=== PATIENT | male | born 1955 | race Caucasian/White ===

== ENCOUNTER → 2017-06-09 13:23 | Outpatient (CLI) | payer MEDICARE ==
[2015-11-17 23:56] VITALS: BMI 45.4
[~2017-06-09 13:23] MED LIST: BAYER CHEWABLE81 MG PO; BETAPACE 80 MG80 MG PO; CENTRUM COMPLE1 EACH PO; CORDARONE200 MG PO; COUMADIN5 MG PO; DICLOFENAC SODI50 MG PO; DOXYCYCLINE HY100 M2 PO; FERROUS SULFAT325 MG PO; FLOMAX0.4 MG PO; GLUCOPHAGE500 MG PO; HYDROCODONE-APA1 TAB PO; K-TAB10 MEQ PO; LASIX20 MG PO; LISINOPRIL10 MG PO; NITROQUICK0.4 MG SL; NORVASC5 MG PO; OXYCODONE HCL5 MG GT; PLAVIX75 MG PO; PRAVACHOL20 MG; PRILOSEC20 MG PO; TESSALON PERLE100 MG PO; VITAMIN C1000 MG PO; ZANAFLEX2 M1 PO; ZANAFLEX4 MG PO; ZANAFLEX6 MG PO; ZANTAC150 MG PO
== END | disposition home or self-care (01) ==
LOC: D.MRI 13:23
DX: M54.16 Radiculopathy, lumbar region (principal)

== ENCOUNTER 2017-07-10 20:39 | Emergency (ER) | payer MEDICARE ==
[2015-11-17 23:56] VITALS: BMI 45.4
== END 2017-07-11 00:16 | disposition home or self-care (01) ==
LOC: D.ER 20:39
DX: S42.001A Fracture of unspecified part of right clavicle, initial encounter for closed fracture (principal); W19.XXXA Unspecified fall, initial encounter; Y93.89 Activity, other specified; Y92.89 Other specified places as the place of occurrence of the external cause; I25.10 Atherosclerotic heart disease of native coronary artery without angina pectoris; I10 Essential (primary) hypertension; E11.9 Type 2 diabetes mellitus without complications

== ENCOUNTER 2017-08-12 16:26 | Inpatient (IN) | payer MEDICARE ==
[~2017-08-12] VITALS: Ht 172.7 cm; Wt 132.5 kg
--- NOTE | ~2017-08-12 | HEMODYNAMI ---
PATIENT:VERNON PETTY MEDICAL RECORD: [id number] : 51 [facility] [id number] ADMISSION DATE: 08/12/17 Generatedon:08/13/201713:38 Patient name: VERNON PETTY Patient #: [id number] SSN: : 1955 Date of study: 08/13/2017 Page: Of Hemodynamic Procedure Report Patient Data Patient Demographics Procedure consent was obtained First Name: VERNON Gender: Male Last Name: JOVANNY : 1955 [facility] Initial: G Age: 62 year(s) Patient #: [id number] Race: Unknown Additional ID: [id number] Contact details [address]: [address] [place] [address] State: [place] City: [place] Zip code: [address] Past Medical History Allergies: No known allergies Admission Admission Data Admission Date: 08/12/2017 Admission Time: 19:05 Room #: 2115 Procedure Procedure Types Cath Procedure Diagnostic Procedure LHC C w/Coronaries FFR/IVUS Intra-Coronary IVUS Initial PCI Procedure Coronary Stent Initial Miscellaneous Procedures Moderate Sedation up to 30 minutes Procedure Description Procedure Date Procedure Date: 08/13/2017 Procedure Start Time: 13:19 Procedure End Time: 13:38 Procedure Staff Name Function Corwin Candelaria MD Performing Physician Leyla Sesay RT Scrub Clemente Tripp RT Scrub Fabian Larson RN Nurse Yamini Ceja RT Monitor Procedure Data Cath Procedure Fluoroscopy Diagnostic fluoroscopy Total fluoroscopy Time: 3 time: 3 min min Diagnostic fluoroscopy Total fluoroscopy dose: dose: 1478 mGy 1478 mGy Contrast Material Contrast Material Type Amount (ml) Isovue 300 89 Entry Location Entry Primary Successful Side Size Upsize Upsize Entry Closure Succes sful Closure Location (Fr) 1 (Fr) 2 (Fr) Remarks Device Remarks Femoral Right 5 Fr 6 Fr Exoseal artery Short Estimated blood loss: 10 ml Diagnostic catheters Device Type Used For End Catheter Placement Cordis 5Fr Pigtail LV Angiography Catheter (MP) Cordis 5Fr JL 4.0 Left Coronary Catheter (MP) Angiography Cordis 5Fr 3DRC Catheter Right Coronary (MP) Angiography Procedure Complications No complications Procedure Medications Medication Administration Route Dosage Oxygen NC 2 l/min Heparin Flush Bag added to field 2 bags (1000units/500ml NS) 0.9% NaCl I.V. 100 ml/hr Plavix P.O. 600 mg Fentanyl I.V. 50 mcg Versed I.V. 1 mg Fentanyl I.V. 50 mcg Versed I.V. 1 mg Integrilin (Bolus I.V. 11.3 ml 2mg/ml) Integrilin (Bolus wasted 8.7 ml 2mg/ml) Heparin Bolus I.V. 4000 units Hemodynamics Rest Heart Rate: 57 (bpm) Snapshots Pre Cath Intra NCS Post Cath Vital Signs Time Heart Resp SPO2 etCO2 LE5msap NIBP (mmHg) Rhythm Pain Sedation Rate (ipm) (%) (mmHg) (mmHg) Status Level (bpm) 13:12:46 56 18 98 0 0 127/74(93) NSR 0 (11) 10(A) , No pain 13:17:31 56 19 97 0 0 137/77(98) NSR 0 (11) 9(A) , No pain 13:22:12 53 18 96 0 0 114/68(86) NSR 0 (11) 9(A) , No pain 13:26:55 52 18 94 0 0 134/71(96) NSR 0 (11) 9(A) , No pain 13:31:39 50 17 95 0 0 124/63(93) NSR 0 (11) 9(A) , No pain 13:36:24 51 15 91 0 0 128/77(108) NSR 0 (11) 9(A) , No pain Medications Time Medication Route Dose Verified Delivered Reason Notes Effectiveness by by 13:12:11 Oxygen NC 2 Fabian Peralta Per physician l/min Neo Larson RN RN 13:12:20 Heparin Flush added 2 Fabian Peralta used for Bag to bags Neo Larson bath steward/stewardess (1000units/500ml field RN NS) 13:12:29 0.9% NaCl I.V. 100 Fabian Peralta Per physician ml/hr Neo Larson RN RN 13:12:40 Plavix P.O. 600 Fabian Peralta for mg Larson Larson RN antiplatelet RN therapy 13:16:36 Fentanyl I.V. 50 Fabian Fabian for sedation mcg Neo Larson RN RN 13:16:43 Versed I.V. 1 mg Fabian Fabian for sedation Neo Larson RN RN 13:22:39 Fentanyl I.V. 50 Fabian Fabian for sedation mcg Neo Larson RN RN 13:22:44 Versed I.V. 1 mg Fabian Fabian for sedation Neo Larson RN RN 13:30:45 Heparin Bolus I.V. 4000 Fabian Fabian for units Neo Larson RN anticoagulation RN 13:31:40 Integrilin I.V. 11.3 Fabian Fabian for (Bolus 2mg/ml) ml Neo Larson RN antiplatelet RN therapy 13:31:52 Integrilin wasted 8.7 Fabian Fabian for (Bolus 2mg/ml) ml Neo Larson RN antiplatelet RN therapy Procedure Log Time Note 12:50:02 Clemente Tripp RT(R) sent for patient. Start room use. 13:03:11 Time tracking: Regular hours 13:03:16 Plan of Care:Hemodynamics will remain stable., Cardiac rhythm will remain stable., Comfort level will be maintained., Respiratory function will remain adequate., Patient/ family verbilizes understanding of procedure., Procedure tolerated without complication., Recovers from procedure without complications.. 13:10:56 Patient received from PCU to CCL 1 Alert and oriented. Tansferred to table in Supine position. 13:10:57 Warm blankets applied, and ro hugger turned on for patient comfort. 13:10:57 Correct patient and procedure confirmed by team. 13:10:58 Signed procedure consent form obtained from patient. 13:10:59 ECG and BP/O2 sat monitors applied to patient. 13:11:00 Vital chart was started 13:11:03 Rhythm: sinus rhythm 13:11:05 Full Disclosure recording started 13:11:18 H&P Date Dictated: 08/13/2017 Within 30 days and on chart.. 13:11:19 Pre-procedure instructions explained to patient. 13:11:20 Pre-op teaching completed and patient verbalized understanding. 13:11:21 Family in waiting room. 13:11:23 Patient NPO since Midnight. 13:11:30 Patient allergic to No known allergies 13:11:33 Is the patient allergic to Iodine/contrast media? No. 13:11:35 Is patient on blood thinner?No 13:11:41 Patient diabetic? No. 13:11:44 Previous problem with sedation/anesthesia? No ? 13:11:45 Snore? Yes 13:11:46 Sleep apnea? Yes 13:11:47 Deviated septum? No 13:11:47 Opens mouth fully? Yes 13:11:48 Sticks out tongue? Yes 13:11:50 Airway obstruction? No ? 13:11:51 Dentures? No ? 13:11:54 Pre procedure: right dorsailis pedis pulse 2+ Normal; easily identifiable; not easily obliterated 13:11:56 Patient pain scale 0/10 ?. 13:12:05 IV patent on arrival in left forearm with 0.9% NaCl at [facility]. 13:12:10 Lab results completed and on chart. 13:12:11 Oxygen 2 l/min NC was administered by Fabian Larson RN; Per physician; 13:12:14 Right groin area was prepped with chlora-prep and draped in sterile fashion 13:12:14 Alarms reviewed by R. N. 13:12:15 Sharps counted by scrub and verified by R.N. 13:12:18 Use device set Femoral Dx 13:12:19 Acist Syringe opened to sterile field. 13:12:20 Heparin Flush Bag (1000units/500ml NS) 2 bags added to field was administered by Fabian Larson RN; used for procedure; 13:12:26 Bag Decanter opened to sterile field. 13:12:26 Medline Cath Pack opened to sterile field. 13:12:27 Terumo 5Fr Goodyears Bar Sheath opened to sterile field. 13:12:27 St Robbie 260cm J .035 wire opened to sterile field. 13:12:28 Acist Hand Control opened to sterile field. 13:12:29 0.9% NaCl 100 ml/hr I.V. was administered by Fabian Larson RN; Per physician; 13:12:29 Acist Manifold opened to sterile field. 13:12:29 Diagnostic Infinity 5Fr Multipack catheter opened to sterile field. 13:12:30 Tegaderm 4 x 4 opened to sterile field. 13:12:40 Plavix 600 mg P.O. was administered by Fabian Larson RN; for antiplatelet therapy; 13:14:33 Final Timeout: patient, procedure, and site verified with staff and physician. All members of the team are in agreement. 13:14:38 Right groin site verified by team. 13:14:40 Physical assessment completed. ASA score P 2 - A patient with mild systemic disease as per Corwin Candelaria MD. 13:14:43 Sedation plan: IV Moderate Sedation Versed, Fentanyl 13:16:26 Baseline sample Acquired. 13:16:28 Zero performed for pressure channel P1 13:16:36 Fentanyl 50 mcg I.V. was administered by Fabian Larson RN; for sedation; ::43 Versed 1 mg I.V. was administered by Fabian Larson RN; for sedation; 13:19:35 Procedure started. 13:19:38 Local anesthetic to right femoral artery with Lidocaine 2% by Corwin Candelaria MD.INITIAL ACCESS ONLY 13:20:08 A 5 Fr sheath was inserted into the Right Femoral artery 13:20:28 A Cordis 5Fr Pigtail Catheter (MP) was advanced over the wire and used for LV Angiography. 13:21:00 LV gram done using RODRIGUEZ 13:21:05 Injector settings: Ml/sec: 10, Volume: 20, 13:21:17 EF : 50 % 13:21:21 Catheter removed. 13:21:39 A Cordis 5Fr JL 4.0 Catheter (MP) was advanced over the wire and used for Left Coronary Angiography. 13:22:39 Fentanyl 50 mcg I.V. was administered by Fabian Larson RN; for sedation; 13:22:44 Versed 1 mg I.V. was administered by Fabian Larson RN; for sedation; 13:23:07 Catheter removed. 13:24:00 A Cordis 5Fr 3DRC Catheter (MP) was advanced over the wire and used for Right Coronary Angiography. 13:24:35 Catheter removed. 13:24:42 Sheath upsized to a 6 Fr Short. 13:25:52 Cana [place] IVUS Catheter opened to sterile field. 13:25:53 Cordis 6FR XBLAD 3.5 guide catheter opened to sterile field. 13:25:53 Terumo 6Fr Goodyears Bar Sheath opened to sterile field. 13:25:54 García Whisper J 300cm 0.014 guide wire opened to sterile field. 13:25:54 Merit BasixCompak Inflation Kit opened to sterile field. 13:26:05 6 Fr XBLAD 3.5 guide catheter was inserted over the wire 13:26:25 Whisper wire advanced. 13:26:49 IVUS catheter advanced over wire. 13:26:53 IVUS pass to LAD lesion performed. 13:28:49 IVUS catheter removed over wire. 13:30:45 Heparin Bolus 4000 units I.V. was administered by Fabian Larson RN; for anticoagulation; 13:31:35 Inflation Number: 1 A Sequans Communicationstronic Integrity 2.5 X 12 stent was prepped and advanced across the Mid LAD. The stent was deployed at 13 MAGDALENA for 0:04 (min:sec). 13:31:40 Integrilin (Bolus 2mg/ml) 11.3 ml I.V. was administered by Fabian Larson RN; for antiplatelet therapy; 13:31:46 Stent catheter was removed intact over wire. 13:31:46 Wire removed. 13:31:47 Guide catheter removed. 13:31:52 Integrilin (Bolus 2mg/ml) 8.7 ml wasted was administered by Fabian Larson RN; for antiplatelet therapy; 13:31:57 Sheath removed intact; hemostasis achieved with Exoseal to the Right Femoral artery. 13:32:03 Procedure ended.(Physican Out) 13:34:34 Fluoroscopy time 03.00 minutes. 13:34:38 Flurop Dose total: 1478 13:34:38 Fluoroscopy dose: 1478 mGy 13:34:48 Contrast amount:Isovue 300 89ml. 13:34:51 Sharps counted by scrub and verified by R.N. 13:34:52 Insertion/operative site no bleeding no hematoma. 13:34:55 Post-op/insertion site Right Femoral artery dressed using a 4 x 4 and Tegaderm. 13:34:58 Post right femoral artery:stable, clean and dry 13:35:01 Post Procedure Pulses reassessed and unchanged 13:35:04 Post-procedure physical assessment completed. ASA score P 2 - A patient with mild systemic disease as per Corwin Candelaria MD. 13:35:06 Post procedure rhythm: unchanged. 13:35:08 Estimated blood loss: 10 ml 13:35:10 Post procedure instruction explained to patient.Patient verbalizes understanding. 13:35:10 Patient needs reinforcement of post procedure teaching. 13:35:20 Procedure Complication : No complications 13:35:23 See physician's report for complete and final results. 13:35:54 Cordis 6Fr Exoseal opened to sterile field. 13:38:12 Procedure type changed to Cath procedure, Diagnostic procedure, LHC, LHC w/Coronaries, FFR/IVUS, Intra-Coronary IVUS Initial, PCI procedure, Coronary Stent Initial, Miscellaneous Procedures, Moderate Sedation up to 30 minutes 13:38:15 Procedure and supply charges have been captured, reviewed, submitted and are correct. 13:38:15 Vital chart was stopped 13:38:18 Report given to PCU. 13:38:22 Patient transfered to PCU with Bed. 13:38:31 Procedure ended. 13:38:31 Full Disclosure recording stopped 13:38:37 End room use (Document Last) Intervention Summary Intervention Notes Time ActionType Lesion and Equipment Action# Pressure Duration Attributes Used 13:31:35 Place stent Mid LAD Medtronic 1 13 00:04 Integrity 2.5 X 12 stent Device Usage Item Name Manufacture Quantity Catalog Hospital Part Current Minimal L ot# / Number Charge Number Stock Stock Serial# Code Acist Acist 1 00125 [id number] 034386 320351 20 Syringe Medical Systems Inc Bag Microtek 1 2002S 003979 26877 958112 5 DecSaavn Medical Inc. Medline Cardinal 1 [id number] 299152 65405 150037 5 Cath Pack Health Terumo 5Fr Terumo 1 PIR288 123673 013323 945809 [address] St Robbie 1 229293 732676 544479 666979 30 260cm J .035 wire Acist Hand Acist 1 45163 702170 088892 857275 5 Control Medical Systems Inc Acist Acist 1 84472 975569 421416 559757 5 Manifold Medical Systems Inc Diagnostic Cardinal 1 [id number] 792170 76709 785795 30 Infinity Health 5Fr Multipack catheter Tegaderm 4 3M 1 1626W 403534 798813 888069 5 x 4 Cordis 5Fr Cardinal 1 139303 5 Pigtail Health Catheter (MP) Cordis 5Fr Cardinal 1 879108 5 JL 4.0 Health Catheter (MP) Cordis 5Fr Cardinal 1 876569 5 3DRC Health Catheter (MP) [place] 1 72944Y 313876 536653 094960 8 [place] IVUS Catheter Cordis 6FR Cardinal 1 [id number] 288062 501312 893951 10 XBLAD 3.5 Health guide catheter Terumo 6Fr Terumo 1 [id number] 684930 670392 679786 40 Goodyears Bar Sheath García García 1 [id number] 462868 976687 432489 5 [facility] J Vascular 300cm 0.014 guide wire Merit Merit 1 NM8227 184353 830644 212777 15 [employer] Medical Inflation Kit Medtronic Medtronic 1 [id number] 606490 147173 3 0 [id number] Integrity 2.5 X 12 stent Cordis 6Fr Cardinal 1 EX600 800888 421182 387579 10 [facility] Signature Audit [place] Stage Time Signature Unsigned Intra-Procedure 08/13/2017 Yamini 1:38:49 PM Counts RT(R) Signatures Monitor : Yamini Signature : Counts RT Date : Time : [place] [id number] [place] [address]
[~2017-08-12 16:26] MED LIST changes: -PRAVACHOL20 MG; +PRAVACHOL20 MG PO
[2017-08-12 17:09] LABS: BASOPHILS 0.3 % (0-2); EOSINOPHILS 4.4 % (0-7); HEMATOCRIT 39.9 % (42.0-54.0); HEMOGLOBIN 13.4 g/dL (13.5-17.5); LYMPHOCYTES 27.9 % (15-50); MCH 30.6 pg (26.0-34.0); MCHC 33.6 g/dL (31.0-37.0); MCV 91.1 fL (80.0-100.0); MEAN PLATELET VOLUME 10.3 fL (7.4-10.4); MONOCYTES 9.6 % (2-11); NEUTROPHILS 57.8 % (40-80); PLATELET COUNT 186 10x3/uL (130-400); RBC 4.38 10x6/uL (4.20-6.10); RDW 14.6 % (11.5-14.5); WBC 8.7 10x3/uL (4.8-10.8)
[2017-08-12 17:26] LABS: ALBUMIN 3.1 g/dL (3.4-5.0); ALKALINE PHOSPHATASE 82 U/L (46-116); ALT (SGPT) 18 U/L (10-68); CALC OSMOLALITY 287 mosm/kg (275-300); CALCIUM 8.6 mg/dL (8.5-10.1); CARBON DIOXIDE 26.1 mmol/L (21.0-32.0); CHLORIDE - SERUM 109 mmol/L (98-107); GLUCOSE 130 mg/dL (74-106); POTASSIUM - SERUM 4.4 mmol/L (3.5-5.1); PROTEIN - SERUM 6.3 g/dL (6.4-8.2); SODIUM 141 mmol/L (136-145); UREA NITROGEN 27 mg/dL (7-18); eGFR NON AFRICAN AMERICAN 80 mL/min (90-120)
[2017-08-12 17:38] LABS: CKMB 1.3 U/L (0.0-3.6); CREATINE KINASE 66 UL (21-232); MAGNESIUM - SERUM 1.7 mg/dL (1.8-2.4); TROPONIN-I < 0.017 ng/mL (0.000-0.060)
--- NOTE | 2017-08-12 20:07 | NUR ---
REPORT RECEIVED FROM LINA BEARDEN.
--- NOTE | 2017-08-12 20:31 | NUR ---
ARRIVED TO FLOOR VIA WHEELCHAIR, ACCOMPANIED BY HOSPITAL STAFF. LEFT FOREARM INFUSING CARDIZEM @ 15. ORIEINTED TO UNIT AND PLACED ON TELEMETRY. CALL LIGHT IN REACH. WILL CONTINUE TO MONITOR. SEE NURSE ASSEMENT.
--- NOTE | 2017-08-12 21:24 | NUR ---
133 FLUTTER ON ARRIVED TO FLOOR, JUST NOW CONVERTED TO 64 SR ON TELEMETRY. WILL CONTINUE TO MONITOR.
[2017-08-12 22:54] VITALS: BP 109/63; BMI 44.5
[2017-08-12 23:58] LABS: CREATINE KINASE 70 UL (21-232)
[2017-08-12 23:59] LABS: TROPONIN-I < 0.017 ng/mL (0.000-0.060)
[2017-08-13] VITALS: BP 119/56
--- NOTE | 2017-08-13 00:19 | NUR ---
CORD MAKER AT BEDSIDE TO OBTAIN VITALS, CALL LIGHT IN REACH. WILL CONTINUE TO MONITOR.
[2017-08-13 04:00] VITALS: BP 120/58
--- NOTE | 2017-08-13 04:52 | NUR ---
NO CHANGES FROM PREVIOUS ASSESSMENT, CALL LIGHT IN REACH. WILL CONTINUE TO MONITOR.
[2017-08-13 06:55] LABS: CKMB 1.2 U/L (0.0-3.6); CREATINE KINASE 67 UL (21-232)
[2017-08-13 07:00] LABS: TROPONIN-I < 0.017 ng/mL (0.000-0.060)
--- NOTE | 2017-08-13 07:30 | NUR ---
RECEIVED PT IN BED EYES CLOSED RESP UNLABORED IV OF CARDIZEN INFUSING TO LFA @5CC/HR WITHOUT DIFFICULTY SITE FREE OF REDNESS OR EDEMA
[2017-08-13 07:47] VITALS: BP 128/80
[2017-08-13 08:55] LABS: BASOPHILS 0.4 % (0-2); EOSINOPHILS 6.1 % (0-7); HEMATOCRIT 38.6 % (42.0-54.0); HEMOGLOBIN 12.7 g/dL (13.5-17.5); IMMATURE GRANULOCYTES 0.2 % (0-5); LYMPHOCYTES 28.7 % (15-50); MCH 30.4 pg (26.0-34.0); MCHC 32.9 g/dL (31.0-37.0); MCV 92.3 fL (80.0-100.0); MEAN PLATELET VOLUME 11.4 fL (7.4-10.4); MONOCYTES 10.2 % (2-11); NEUTROPHILS 54.4 % (40-80); PLATELET COUNT 203 10x3/uL (130-400); RBC 4.18 10x6/uL (4.20-6.10); RDW 14.9 % (11.5-14.5)
[2017-08-13 08:58] LABS: ANION GAP 11.8 mmol/L (8-16); CALCIUM 8.5 mg/dL (8.5-10.1); CARBON DIOXIDE 25.5 mmol/L (21.0-32.0); CREATININE - SERUM 1.1 mg/dL (0.6-1.3); POTASSIUM - SERUM 4.3 mmol/L (3.5-5.1)
--- NOTE | 2017-08-13 08:58 | NUR ---
BETAPACE 80 MG GIVEN PO PER ORDER AT THIS TIME
[2017-08-13 09:42] VITALS: Ht 172.7 cm; Wt 132.5 kg
--- NOTE | 2017-08-13 11:00 | NUR ---
DCD CARDIZEM IV AT THIS TIME PER ORDER
[2017-08-13 11:42] VITALS: BP 106/52
--- NOTE | 2017-08-13 13:55 | NUR ---
RECEIVED PT BACK FROM DIRECTOR RECREATION VIA BED RT MARSHA GRAHAM C/D/I PPPX4 VSS WILL CONTINUE TO MONITR
[2017-08-13] MEDS ORDERED: BETAPACE 80 MG80 MG PO (15:27)
[2017-08-13] MEDS ORDERED: PLAVIX75 MG PO (16:26)
--- NOTE | 2017-08-13 16:47 | NUR ---
Patient Name: VERNON PETTY Admission Status: ER Accout number: [id number] Admission Date: 08-12-2017 : 1955 Admission Diagnosis: Attending: NAVDEEP PATEL Current LOS: 1 Anticipated DC Date: 08-13-2017 Planned Disposition: Home Primary Insurance: [facility] Discharge Planning Comments: * Is the patient Alert and Oriented? Yes 0 * How many steps to enter\exit or inside your home? 3 0 * PCP DR. PIERCE 0 * Pharmacy [facility] 0 * Preadmission Environment Home with Family 0 * ADLs Independent 0 * Equipment Cane 0 * Other Equipment NO MEDICAL EQUIPMENT PROVIDER PREFERENCE 0 * List name and contact numbers for known caregivers / representatives who currently or will assist patient after discharge: DAXA STEIN, SPOUSE, 0 * Community resources currently utilized None 0 * Please name any agencies selected above. NONE 0 * Additional services required to return to the preadmission environment? No 0 * Can the patient safely return to the preadmission environment? Yes 0 * Has this patient been hospitalized within the prior 30 days at any hospital? No 0 CM MET WITH PT IN ROOM TO DISCUSS DISCHARGE PLANNING AND NEEDS. PT REPORTS LIVING AT HOME INDEPENDENTLY WITH HIS SPOUSE. PT HAS A CANE WITH NO MEDICAL EQUIPMENT PROVIDER PREFERENCE. PT HAS NO OUTSIDE SERVICES ASSISTING IN THE HOME. CM DISCUSSED AVAILABILITY OF HOME HEALTH, REHAB SERVICES AND MEDICAL EQUIPMENT. PT DENIES DISCHARGE NEEDS, REPORTS HIS SPOUSE WILL PICK HIM UP FOR DISCHARGE HOME AT 8PM TONIGHT. State Inspector: Daquan Willis
--- NOTE | 2017-08-13 17:18 | NUR ---
FSBS 107
--- NOTE | 2017-08-13 20:02 | NUR ---
WHEELED OUT TO VEHICLE.
--- NOTE | 2017-08-14 11:12 | EC ---
PATIENT:VERNON PETTY DATE OF SERVICE: 08/12/17 SEX: M MEDICAL RECORD: [id number] DATE OF : [birth year] LOCATION:D.M2 D.211 AGE OF PATIENT: 62 ADMISSION DATE: 08/12/17 REFERRING PHYSICIAN: INTERPRETING PHYSICIAN: GELY CRAMER MD ECHOCARDIOGRAM REPORT ECHO CHARGES 4 ECHO COMPLETE CLINICAL DIAGNOSIS: ATRIAL FLUTTER ECHOCARDIOGRAPHIC MEASUREMENTS (adult normal given) AC root (d.<3.7cm) 3.2 cm LV Septum d (<1.2 cm> 1.4 cm Valve Excursion 1.6 cm LV Septum (systole) 1.7 cm Left Atria (s.<4.0cm> 3.5 cm LVPW d(<1.2cm) 1.6 cm RV (d.<2.3cm) 4.1 cm LVPW (sytole) 1.8 cm LV diastole(<5.6CM) 5.2 cm MV E-F(>70mm/sec) cm LV systole 3.7 cm LVOT Diameter 2.0 cm MV exc.(>10mm) 2.1 cm Est.ejection fraction (50-75%) % Pericardial Effusion N DOPPLER: LVIT cm/sec A 62.0 cm/sec E 92.0 cm/sec LA cm/sec RVSP mmHg LVOT 88 cm/sec AOP1/2T 6.24 m/s Asc. Ao 125 cm/sec RVOT 99 cm/sec RA cm/sec PA 100 cm/sec AV Gradient Peak 3.17 mmHg AV Mean 2.1 mmHg AV Area 4 cm MV Gradient Peak 4.0 mmHg MV Mean 0.79 mmHg MV Area cm COMMENTS: Cat And Dog Bather: Bob DIAZ Manager Inventory: 2 Dr. Avila TAPE# PACS DATE OF SERVICE: 08/13/2017 Echocardiogram FINDINGS: 1. Left ventricular chamber size is within normal limits. Left ventricular systolic function is normal. Overall ejection fraction estimated at 55%. 2. Left atrium is within normal limits at 3.5 cm. Right atrium and right ventricular chamber sizes are mildly dilated. 3. Valvular structures have normal structure and motion. ECHOCARDIOGRAM REPORT [id number] VERNON PETTY 4. Doppler interrogation reveals no significant valvular insufficiency or stenosis. 5. No evidence of pericardial effusion or left ventricular thrombus. TRANSINT:[id number] Voice Confirmation ID: [id number] DOCUMENT ID: [id number] GELY CRAMER MD at 1112 CC: [id number] DICTATION DATE: 08/13/17 1247 TELLER SUPERVISOR: 08/13/17 190 DIS IN 08/13/17 [facility] [address] [place] [address]
--- NOTE | 2017-08-14 11:12 | OP ---
PATIENT NAME: VERNON PETTY MEDICAL RECORD: [id number] :[birth year] LOCATION:D.M2 D.2115 ADMISSION DATE:08/12/17 SURGEON: GELY CRAMER MD DATE OF OPERATION: 08/13/2017 PROCEDURES: 1. PTCA stent LAD. 2. Intravascular ultrasound of the LAD. 3. Left heart catheterization. 4. Selective coronary angiography. 5. Left ventriculogram. INDICATION: Angina and coronary artery disease. PROCEDURE IN DETAIL: After informed consent was obtained and after detailed explanation of risks, benefits as well as alternative therapies, the patient elected to proceed with angiogram and angioplasty. The right femoral area was prepped and draped in normal sterile fashion. The right femoral artery was cannulated via modified Seldinger technique with placement of 6-Polish sheath. All catheters exchanged through this sheath. FINDINGS: Left ventriculogram was performed in standard 30-degree RODRIGUEZ view, reveals preserved cardiac wall motion, ejection fraction 50%. SELECTIVE CORONARY ANGIOGRAPHY: 1. Left main showed no significant angiographic disease. 2. Left anterior descending has previously placed stents, these are widely patent; however, there is 65% to 70% stenosis after the previously placed stents confirmed by intravascular ultrasound. 3. The left circumflex shows moderate irregularities, but no flow-limiting stenosis. 4. Right coronary is small, nondominant, moderate disease. PTCA STENT OF THE LAD: The stent used is a 2.5 x 12 mm Integrity taken to 17 atmospheres. Result was 0% residual stenosis. OVERALL IMPRESSION: Successful percutaneous transluminal coronary angioplasty stent of the left anterior descending going from 65-70% initial stenosis to 0% residual stenosis. TRANSINT:[id number] Voice Confirmation ID: [id number] DOCUMENT ID: [id number] GELY CRAMER MD at 1112 CC: [id number] DICTATION DATE: 08/13/17 1338 DRYWALL TAPER: 08/13/17 2030 DIS IN 08/13/17 [place] [id number]
== END 2017-08-13 20:03 | disposition home or self-care (01) | DRG 249 ==
LOC: D.ER 16:26 → D.M2 19:05
PROVIDERS: Family Medicine; Internal Medicine Interventional Cardiology; ADMIT Family Medicine Adult Medicine
PROC: B2111ZZ Fluoroscopy of Multiple Coronary Arteries using Low Osmolar Contrast (ICD-10-PCS; 2017-08-13)
PROC: B2151ZZ Fluoroscopy of Left Heart using Low Osmolar Contrast (ICD-10-PCS; 2017-08-13)
PROC: B240ZZ3 Ultrasonography of Single Coronary Artery, Intravascular (ICD-10-PCS; 2017-08-13)
PROC: 02703DZ Dilation of Coronary Artery, One Artery with Intraluminal Device, Percutaneous Approach (ICD-10-PCS; principal; 2017-08-13 11:45)
PROC: 4A023N7 Measurement of Cardiac Sampling and Pressure, Left Heart, Percutaneous Approach (ICD-10-PCS; 2017-08-13 11:45)
DX: I25.119 Atherosclerotic heart disease of native coronary artery with unspecified angina pectoris (principal); I48.92 Unspecified atrial flutter; Z68.41 Body mass index [BMI] 40.0-44.9, adult; I10 Essential (primary) hypertension; K21.9 Gastro-esophageal reflux disease without esophagitis; E66.01 Morbid (severe) obesity due to excess calories; D63.8 Anemia in other chronic diseases classified elsewhere; I48.2 Chronic atrial fibrillation; E11.65 Type 2 diabetes mellitus with hyperglycemia; R00.2 Palpitations; R00.0 Tachycardia, unspecified; Z95.5 Presence of coronary angioplasty implant and graft; Z87.891 Personal history of nicotine dependence

== ENCOUNTER 2017-09-01 13:38 | Observation (INO) | payer MEDICARE ==
[2017-09-01 14:06] LABS: BASOPHILS 0.2 % (0-2); EOSINOPHILS 5.3 % (0-7); HEMATOCRIT 42.2 % (42.0-54.0); HEMOGLOBIN 14.3 g/dL (13.5-17.5); IMMATURE GRANULOCYTES 0.2 % (0-5); LYMPHOCYTES 24.8 % (15-50); MCH 30.8 pg (26.0-34.0); MCHC 33.9 g/dL (31.0-37.0); MCV 90.9 fL (80.0-100.0); MEAN PLATELET VOLUME 10.8 fL (7.4-10.4); MONOCYTES 9.6 % (2-11); NEUTROPHILS 59.9 % (40-80); PLATELET COUNT 183 10x3/uL (130-400); RBC 4.64 10x6/uL (4.20-6.10); RDW 14.2 % (11.5-14.5); WBC 9.1 10x3/uL (4.8-10.8)
[2017-09-01 14:26] LABS: ALBUMIN 3.4 g/dL (3.4-5.0); ALKALINE PHOSPHATASE 100 U/L (46-116); ALT (SGPT) 18 U/L (10-68); BILIRUBIN - TOTAL 0.45 mg/dL (0.2-1.3); CALC OSMOLALITY 280 mosm/kg (275-300); CALCIUM 8.9 mg/dL (8.5-10.1); CARBON DIOXIDE 24.7 mmol/L (21.0-32.0); CHLORIDE - SERUM 104 mmol/L (98-107); CREATININE - SERUM 0.9 mg/dL (0.6-1.3); GLUCOSE 125 mg/dL (74-106); POTASSIUM - SERUM 4.3 mmol/L (3.5-5.1); PROTEIN - SERUM 6.8 g/dL (6.4-8.2); SODIUM 139 mmol/L (136-145); UREA NITROGEN 17 mg/dL (7-18); eGFR NON AFRICAN AMERICAN 90 mL/min (90-120)
[2017-09-01 14:49] LABS: AMYLASE - SERUM 32 U/L (25-115); CHOL - HDL RATIO 2.7 ratio (2.3-4.9); CHOLESTEROL, TOTAL 137 mg/dL (0-200); CKMB 1.1 U/L (0.0-3.6); CREATINE KINASE 82 UL (21-232); HDL CHOLESTEROL 51 mg/dL (32-96); LDL CHOLESTEROL 63 mg/dL (0-100); LDL-HDL RATIO 1.2 ratio (1.5-3.5); LIPASE 118 U/L (73-393); TRIGLYCERIDE 117 mg/dL (30-200)
[2017-09-01 14:57] LABS: TROPONIN-I < 0.017 ng/mL (0.000-0.060)
[2017-09-01 17:58] LABS: CKMB 1.4 U/L (0.0-3.6); CREATINE KINASE 86 UL (21-232); TROPONIN-I < 0.017 ng/mL (0.000-0.060)
[2017-09-01] MEDS ORDERED: BETAPACE 80 MG80 MG PO (18:08)
[2017-09-01 18:39] VITALS: BP 146/105; BMI 45.5
[2017-09-01 19:00] VITALS: BP 157/92
--- NOTE | 2017-09-01 19:44 | NUR ---
ASSESSMENT COMPLETE, PT A&O. AMBULATING IN ROOM, GAIT STEADY. VITALS STABLE. IV TO RIGHT AC SL. SITE CLEAN AND DRY. PT C/O HEADACHE, INFORMED PT THAT I DIDNT HAVE ANY ORDERS FOR PAIN MEDICATION BUT I WILL CALL THE PHYSICIAN AND ASK IF FOR SOMETHING. NO OTHER NEEDS AT THIS TIME, WILL CONT TO MONITOR.
[2017-09-01 19:48] VITALS: BP 156/87
--- NOTE | 2017-09-01 20:29 | NUR ---
HS MEDS GIVEN WITH FRESH ICE WATER, FIORICET 1 TAB GIVEN FOR HEADACHE, RATES PAIN AT AN 8 ON PAIN SCALE.
[2017-09-01 23:42] LABS: CKMB 1.2 U/L (0.0-3.6); CREATINE KINASE 92 UL (21-232)
[2017-09-01 23:43] LABS: TROPONIN-I < 0.017 ng/mL (0.000-0.060)
[2017-09-02] VITALS: BP 127/72
--- NOTE | 2017-09-02 00:09 | NUR ---
ANIMAL BEHAVIORIST AT BED SIDE TO OBTAIN VITALS.
[2017-09-02 04:00] VITALS: BP 139/85
--- NOTE | 2017-09-02 05:01 | NUR ---
PT LYING IN BED, RESTING COMFORTABLY, CONTINUE TO MONITOR CLOSELY.
[2017-09-02 05:06] LABS: BASOPHILS 0.2 % (0-2); EOSINOPHILS 5.5 % (0-7); HEMATOCRIT 42.6 % (42.0-54.0); HEMOGLOBIN 14.4 g/dL (13.5-17.5); IMMATURE GRANULOCYTES 0.1 % (0-5); MCH 30.6 pg (26.0-34.0); MCHC 33.8 g/dL (31.0-37.0); MCV 90.6 fL (80.0-100.0); MONOCYTES 9.2 % (2-11); PLATELET COUNT 194 10x3/uL (130-400); RDW 14.2 % (11.5-14.5); WBC 8.9 10x3/uL (4.8-10.8)
[2017-09-02 05:51] LABS: CALC OSMOLALITY 283 mosm/kg (275-300); CALCIUM 8.9 mg/dL (8.5-10.1); CHLORIDE - SERUM 107 mmol/L (98-107); CKMB 0.9 U/L (0.0-3.6); CREATINE KINASE 87 UL (21-232); CREATININE - SERUM 0.9 mg/dL (0.6-1.3); GLUCOSE 119 mg/dL (74-106); POTASSIUM - SERUM 4.3 mmol/L (3.5-5.1); SODIUM 141 mmol/L (136-145); TROPONIN-I < 0.017 ng/mL (0.000-0.060); UREA NITROGEN 19 mg/dL (7-18); eGFR NON AFRICAN AMERICAN 90 mL/min (90-120)
[2017-09-02 08:11] VITALS: BP 131/76
[2017-09-02 10:19] VITALS: BMI 45.4
[2017-09-02 12:10] VITALS: BP 113/72
--- NOTE | 2017-09-02 14:50 | CN ---
PATIENT NAME:VERNON PETTY MEDICAL RECORD: [id number] : [birth year] LOCATION:[facility] D.2119 ADMIT DATE: 09/01/17 ACCOUNT: [id number] CONSULTING PHYSICIAN: WENDY BEARDEN MD REFERRING PHYSICIAN: DANA ARECHIGA MD DATE OF CONSULTATION: 09/02/2017 HISTORY OF PRESENT ILLNESS: A 62-year-old gentleman with known history of coronary artery disease, status post recent intervention to the LAD, has a history of atrial fibrillation. He was admitted with chest pain, dyspnea, found to have AFib with RVR. Cardiac enzymes are currently negative. He recently had his sotalol decreased secondary to the bradyarrhythmias. He has been cardioverted in the past. We are asked to see him concerning his cardiovascular status. PAST MEDICAL HISTORY: Includes: 1. History of coronary artery disease as described above. 2. Hypertension. 3. Hyperlipidemia. 4. Diabetes mellitus. ALLERGIES: None known. MEDICATIONS: Include metformin 1 gram b.i.d., Zantac 150 q. day, aspirin 81 q. day, sotalol 40 b.i.d., pravastatin 20 q.h.s., lisinopril 10 q. day, Plavix 75 q. day. SOCIAL HISTORY: He is a nonsmoker, nondrinker. He takes care of all his ADLs. REVIEW OF SYSTEMS: The patient reports easy bruising but reports no swollen glands. The patient reports no fever, no night sweats, no significant weight gain, no significant weight loss. No significant exercise tolerance. The patient reports no dry eyes, no irritation, no vision change. Patient reports no difficulty hearing and no ear pain. Patient reports no frequent nose bleeds or nose and sinus problems. Patient reports on arm pain on exertion. No shortness of breath while lying down. No history of heart murmur. Patient reports no cough, no wheezing or coughing up blood. Patient reports no abdominal pain, no vomiting. Normal appetite. No diarrhea and not vomiting blood. No nausea and no constipation. Patient reports no incontinence. No difficulty urinating. No hematuria. No increased frequency. Patient reports no muscle aches. No weakness, no arthralgias, no back pain. No swelling of the extremities. Patient reports no abnormal mole, no jaundice, no rashes. Reports no loss of consciousness. No weakness and no numbness. No seizures, dizziness, or headaches. The patient reports no depression, no sleep disturbance, feeling safe in a relationship and no alcohol abuse. Patient reports on fatigue. Reports no runny nose or sinus pressure. No itching, no hives, and no frequent sneezing. PHYSICAL EXAMINATION: GENERAL: Middle-aged gentleman, in no acute distress. HEENT: Normocephalic and atraumatic. NECK: No bruits are noted. HEART: Irregular, rate is 118. LUNGS: Fair air excursion. ABDOMEN: Soft and nontender. CONSULT REPORT [id number] VERNON PETTY EXTREMITIES: Pulse 2+ with no edema. DIAGNOSTIC DATA: ECG concerning for atrial fibrillation with RVR. At this point in time, I will increase sotalol. Given the length of the episode, we will need placed on anticoagulation and start Xarelto for this purpose. May need cardioversion in the future. Given the previous history of bradyarrhythmias and question of 3 sick sinus syndrome, may require pacer at some point. TRANSINT:[id number] Voice Confirmation ID: [id number] DOCUMENT ID: [id number] WENDY BEARDEN MD at 1450 CC: [id number] DICTATION DATE: 09/02/17 0855 ITALIAN TUTOR: 09/02/17 1125 ADM IN [place] [id number] [place] [id number]
[2017-09-02 15:26] VITALS: BP 127/89
--- NOTE | 2017-09-02 15:40 | NUR ---
TELEMETRY SR. CALL LIGHT IN REACH. NO C/O NOTED. WILL CONT. PLAN OF CARE.
--- NOTE | 2017-09-02 17:02 | NUR ---
Patient Name: VERNON PETTY Admission Status: ER Accout number: [id number] Admission Date: 09-01-2017 : 1955 Admission Diagnosis: Attending: DANA ARECHIGA Current LOS: 1 Anticipated DC Date: 09-03-2017 Planned Disposition: Home Primary Insurance: [facility] Discharge Planning Comments: * Is the patient Alert and Oriented? Yes 0 * How many steps to enter\exit or inside your home? 3 0 * PCP DR. PIERCE 0 * Pharmacy [facility] 0 * Preadmission Environment Home with Family 0 * ADLs Independent 0 * Equipment Cane CPAP 0 * Other Equipment NO MEDICAL EQUIPMENT PROVIDER PREFERNCE 0 * List name and contact numbers for known caregivers / representatives who currently or will assist patient after discharge: DAXA EMIL, SIGNIFICANT OTHER, [place] PETTY, SON, 0 * Community resources currently utilized None 0 * Please name any agencies selected above. NONE 0 * Additional services required to return to the preadmission environment? No 0 * Can the patient safely return to the preadmission environment? Yes 0 * Has this patient been hospitalized within the prior 30 days at any hospital? No 0 CM RECEIVED ORDER FOR ALCOHOL OR DRUG ABUSE TREATMENT SCREENING AND INFORMATION. CM MET WITH PT IN ROOM TO DISCUSS DISCHARGE PLANNING AND NEEDS. PT REPORTS LIVING AT HOME INDEPENDENTLY WITH SIGNIFICANT OTHER AND ADULT SON. PT HAS NO CANE AND CPAP WITH NO MEDICAL EQUIPMENT PROVIDER PREFERENCE. PT HAS NO OUTSIDE SERVICES ASSISTING IN THE HOME. CM DISCUSSED AVAILABILITY OF HOME HEALTH, REHAB SERVICES AND MEDICAL EQUIPMENT. PT DENIES DISCHARGE NEEDS, REPORTS HIS FAMILY WILL PICK HIM UP FOR DISCHARGE HOME. CM ASKED PT ABOUT SUBSTANCE ABUSE ISSUES. PT REPORTS HE DOES USE MARIJUANA, BUT IS NOT INTERESTED IN QUITTING. PT WANTS TO OBTAIN A MEDICAL MARIJUANA CARD AND HAS DISCUSSED THIS WITH THE DOCTOR WHO HAS PROVIDED HIM WITH SOME GUIDANCE. PT DENIES DISCHARGE NEEDS, CM TO FOLLOW AND ASSIST IF NEEDED. Geothermal Operations Manager: Daquan Willis
--- NOTE | 2017-09-02 19:37 | NUR ---
ASSESSMENT COMPLETE, A&O. RESPERATIONS EVEN ON RA. IV TO RIGHT AC SL, SITE CLEAN AND DRY. PT DENIES PAIN OR NEEDS, BED LOW, CL IN REACH.
[2017-09-02 20:00] VITALS: BP 128/103
--- NOTE | 2017-09-02 21:08 | NUR ---
HS MEDS GIVEN WITH FRESH ICE WATER, MORPHINE 4 MG GIVEN FOR C/O PAIN TO CHEST, RATES PAIN AT A 4 ON PAIN SCALE.
--- NOTE | 2017-09-02 23:59 | NUR ---
RESTING WITH EYES CLOSED, RESPERATIONS EVEN, NO S/S DISTRESS NOTED
--- NOTE | 2017-09-03 01:57 | NUR ---
LYING IN BED WITH EYES CLOSED, CALL LIGHT IN REACH. WILL CONTINUE WITH PLAN OF CARE.
[2017-09-03 04:00] VITALS: BP 101/78
[2017-09-03 05:55] LABS: BASOPHILS 0.3 % (0-2); EOSINOPHILS 4.3 % (0-7); HEMATOCRIT 43.5 % (42.0-54.0); HEMOGLOBIN 14.7 g/dL (13.5-17.5); IMMATURE GRANULOCYTES 0.3 % (0-5); LYMPHOCYTES 25.3 % (15-50); MCH 30.5 pg (26.0-34.0); MCHC 33.8 g/dL (31.0-37.0); MCV 90.2 fL (80.0-100.0); MEAN PLATELET VOLUME 11.1 fL (7.4-10.4); MONOCYTES 8.6 % (2-11); NEUTROPHILS 61.2 % (40-80); PLATELET COUNT 211 10x3/uL (130-400); RBC 4.82 10x6/uL (4.20-6.10); RDW 14.2 % (11.5-14.5); WBC 11.1 10x3/uL (4.8-10.8)
[2017-09-03 06:12] LABS: CALC OSMOLALITY 279 mosm/kg (275-300); CALCIUM 8.5 mg/dL (8.5-10.1); CARBON DIOXIDE 24.5 mmol/L (21.0-32.0); CHLORIDE - SERUM 104 mmol/L (98-107); CREATININE - SERUM 0.9 mg/dL (0.6-1.3); GLUCOSE 135 mg/dL (74-106); POTASSIUM - SERUM 3.8 mmol/L (3.5-5.1); SODIUM 138 mmol/L (136-145); UREA NITROGEN 17 mg/dL (7-18); eGFR NON AFRICAN AMERICAN 90 mL/min (90-120)
[2017-09-03 07:42] VITALS: BP 124/89
[2017-09-03] MEDS ORDERED: BETAPACE 120 M120 MG PO (12:14)
[2017-09-03] MEDS ORDERED: XARELTO20 MG PO (12:14)
--- NOTE | 2017-09-03 15:01 | NUR ---
IV AND TELEMETRY DCD. DC PLANS GIVEN. UNDERSTANDING VOICED. ESCORTED TO CAR BY W/C.
== END 2017-09-03 15:02 | disposition home or self-care (01) ==
LOC: D.ER 13:38 → OBSVTIME 16:48 → D.M2 16:48 → D.SDCHOLD 17:12 → D.M2 17:17
PROVIDERS: Family Medicine; ADMIT Family Medicine
DX: I48.91 Unspecified atrial fibrillation (principal); I25.10 Atherosclerotic heart disease of native coronary artery without angina pectoris; Z95.5 Presence of coronary angioplasty implant and graft; I10 Essential (primary) hypertension; E78.5 Hyperlipidemia, unspecified; E66.01 Morbid (severe) obesity due to excess calories; Z68.42 Body mass index [BMI] 45.0-49.9, adult; D63.8 Anemia in other chronic diseases classified elsewhere; E11.65 Type 2 diabetes mellitus with hyperglycemia

== ENCOUNTER 2017-10-04 14:24 | Inpatient (IN) | payer MEDICARE ==
[~2017-10-04] VITALS: Ht 172.7 cm; Wt 129.3 kg
--- NOTE | ~2017-10-04 | HEMODYNAMI ---
PATIENT:VERNON PETTY MEDICAL RECORD: [id number] : [birth year] [address] [id number] ADMISSION DATE: 10/04/17 Generatedon:10/05/20179:58 Patient name: VERNON PETTY Patient #: [id number] SSN: : 1955 Date of study: 10/05/2017 Page: Of Hemodynamic Procedure Report Patient Data Patient Demographics Procedure consent was obtained First Name: VERNON Gender: Male Last Name: JOVANNY : 1955 [facility] Initial: Max Age: 62 year(s) Patient #: [id number] Race: Unknown Additional ID: [id number] Contact details Address: [address] [place] [address] State: [place] City: [place] Zip code: [address] Past Medical History Allergies: No known allergies Admission Admission Data Admission Date: 10/04/2017 Admission Time: 18:34 Room #: D.2114 Weight (lbs.): 291.01 Weight (kg.): 132 Lab Results Lab Result Date: 10/05/2017 Lab Result Time: 0:00 Biochemistry Name Units Result Min Max BUN mg/dl 29 --(----)-* 7 18 Creatinine mg/dl 0.9 --(-*--)-- 0.6 1.3 CBC Name Units Result Min Max Hematocrit % 45.8 --(-*--)-- 42 54 Hemoglobin g/dl 15.6 --(--*-)-- 13.5 17.5 Procedure Procedure Types Cath Procedure Diagnostic Procedure LHC LHC w/Coronaries Miscellaneous Procedures Moderate Sedation up to 15 minutes Procedure Description Procedure Date Procedure Date: 10/05/2017 Procedure Start Time: 9:43 Procedure End Time: 9:57 Procedure Staff Name Function Carol Ramos RT Monitor Mario Avila MD Performing Physician Doug Ramirez RN Nurse Leyla Sesay RT Scrub Clemente Tripp RT Monitor Procedure Data Cath Procedure Fluoroscopy Diagnostic fluoroscopy Total fluoroscopy Time: 1.8 time: 1.8 min min Diagnostic fluoroscopy Total fluoroscopy dose: 572 dose: 572 mGy mGy Contrast Material Contrast Material Type Amount (ml) Isovue 300 61 Entry Location Entry Primary Successful Side Size Upsize Upsize Entry Closure Succes sful Closure Location (Fr) 1 (Fr) 2 (Fr) Remarks Device Remarks Femoral Right 5 Fr Exoseal artery Estimated blood loss: 10 ml Diagnostic catheters Device Type Used For End Catheter Placement Cordis 5Fr JL 4.0 Procedure Catheter (MP) Cordis 5Fr 3DRC Catheter Procedure (MP) Cordis 5Fr Pigtail Procedure Catheter (MP) Procedure Complications No complications Procedure Medications Medication Administration Route Dosage 0.9% NaCl I.V. 100 ml/hr Oxygen NC 2 l/min Heparin Flush Bag added to field 2 bags (1000units/500ml NS) Lidocaine 2% added to field 20 Versed I.V. 1 mg Fentanyl I.V. 50 mcg Fentanyl I.V. 50 mcg Versed I.V. 1 mg Hemodynamics Rest HGB: 15.6 (g/dl) Heart Rate: 54 (bpm) Pressure Samples Time Site Value (mmHg) Purpose Heart Use Rate(bpm) 9:48 AO 155/83(111) Snapshot 56 9:52 LV 158/15,28 Snapshot 66 9:53 AO 178/85(124) Pullback 58 Gradients Valve Time Site Site 2 Mean SEP/DFP Peak To Heart Use 1 (mmHg) (sec/min) Peak Rate (mmHg) (bpm) Aortic 9:53 LV AO 9 4 58 178/85(124) Calculations Valve P-P Mean Valve Index Valve Source Name Gradient Area Flow (cm2) Aortic 9 9 Snapshots Pre Cath Intra NCS Post Cath Vital Signs Time Heart Resp SPO2 etCO2 NIBP (mmHg) Rhythm Pain Sedation Rate (ipm) (%) (mmHg) Status Level (bpm) 9:29:09 56 18 100 43.5 146/101(118) NSR 0 (11) 10(A) , No pain 9:33:53 52 22 100 38.3 153/81(111) NSR 0 (11) 10(A) , No pain 9:39:29 60 20 95 33 159/72(95) NSR 0 (11) 10(A) , No pain 9:44:16 54 17 98 42 161/84(118) NSR 0 (11) 10(A) , No pain 9:49:03 58 19 98 38.3 138/85(114) NSR 0 (11) 10(A) , No pain 9:54:28 59 18 98 42.8 155/86(117) NSR 0 (11) 10(A) , No pain Medications Time Medication Route Dose Verified Delivered Reason Notes Effec tiveness by by 9:32:15 0.9% NaCl I.V. 100 Doug Doug Per ml/hr Ashley Ramirez physician RN RN 9:33:54 Oxygen NC 2 Doug Doug Per l/min Ashley Ramirez physician RN RN 9:34:17 Heparin Flush added 2 Doug Doug used for Bag to bags Lorigan Lorigan procedure (1000units/500ml field RN RN NS) 9:34:31 Lidocaine 2% added 20ml Doug Doug for local to vial Lorigan Lorigan anesthetic field RN RN 9:37:55 Versed I.V. 1 mg Doug Doug for Lorigan Lorigan sedation RN RN 9:38:07 Fentanyl I.V. 50 Doug Doug for mcg Lorigan Lorigan sedation RN RN 9:39:39 Fentanyl I.V. 50 Doug Doug for mcg Lorigan Lorigan sedation RN RN 9:46:29 Versed I.V. 1 mg Doug Doug for Lorigan Lorigan sedation RN technician trainee Log Time Note 8:57:19 Doug Ramirez RN sent for patient. Start room use. 8:57:20 Time tracking: Regular hours 8:57:24 Plan of Care:Hemodynamics will remain stable., Cardiac rhythm will remain stable., Comfort level will be maintained., Respiratory function will remain adequate., Patient/ family verbilizes understanding of procedure., Procedure tolerated without complication., Recovers from procedure without complications.. 9:06:39 H&P Date Dictated: 10/04/2017 Within 30 days and on chart.. 9:07:20 Lab Result : Hemoglobin 15.6 g/dl 9:07:20 Lab Result : Hematocrit 45.8 % 9:07:20 Lab Result : BUN 29 mg/dl 9:07:20 Lab Result : Creatinine 0.9 mg/dl 9:07:27 Lab results completed and on chart. 9:15:40 Patient received from Pre/Post Procedure Room to CCL 1 Alert and oriented. Tansferred to table in Supine position. 9:15:41 Warm blankets applied, and ro hugger turned on for patient comfort. 9:15:42 Correct patient and procedure confirmed by team. 9:15:44 Signed procedure consent form obtained from patient. 9:15:45 ECG and BP/O2 sat monitors applied to patient. 9:28:21 Vital chart was started 9:28:23 Baseline sample Acquired. 9:28:29 Rhythm: sinus bradycardia 9:28:30 Full Disclosure recording started 9:28:31 Pre-procedure instructions explained to patient. 9:28:32 Pre-op teaching completed and patient verbalized understanding. 9:28:35 Family unavailable. 9:28:36 Patient NPO since Midnight. 9:28:38 Is the patient allergic to Iodine/contrast media? No. 9:28:40 Is patient on blood thinner?Yes 9:28:43 ACC The patient was administered the following blood thiners within the last 24 hours: ACCPlavix 9:28:45 Patient diabetic? Yes. 9:28:46 If diabetic: On Metformin? Yes 9:28:50 If on Metformin: Last Dose? 10/05/2017 9:28:53 Previous problem with sedation/anesthesia? No ? 9:28:55 Snore? Yes 9:28:56 Sleep apnea? Yes 9:28:57 Deviated septum? No 9:28:58 Opens mouth fully? Yes 9:28:59 Sticks out tongue? Yes 9:29:03 Airway obstruction? No ? 9:29:07 Dentures? Yes OUT 9:29:11 Pre procedure: right dorsailis pedis pulse 1+ Palpable, but thready & weak; easily obliterated 9:29:12 Patient pain scale 0/10 ?. 9:29:17 IV patent on arrival in left forearm with 0.9% NaCl at KVO. 9:29:23 Right groin area was prepped with chlora-prep and draped in sterile fashion 9:29:24 Alarms reviewed by R. N. 9:29:25 Sharps counted by scrub and verified by R.N. 9:30:35 Use device set Femoral Dx 9:30:36 Tegaderm 4 x 4 opened to sterile field. 9:30:37 Acist Manifold opened to sterile field. 9:30:37 Acist Hand Control opened to sterile field. 9:30:39 Bag Decanter opened to sterile field. 9:30:39 Acist Syringe opened to sterile field. 9:30:40 St Robbie 260cm J .035 wire opened to sterile field. 9:30:40 Terumo 5Fr [place] Sheath opened to sterile field. 9:30:40 Medline Cath Pack opened to sterile field. 9:30:41 Diagnostic Infinity 5Fr Multipack catheter opened to sterile field. 9:32:15 0.9% NaCl 100 ml/hr I.V. was administered by Doug Ramirez RN; Per physician; 9:33:54 Oxygen 2 l/min NC was administered by Doug Ramirez RN; Per physician; 9:34:17 Heparin Flush Bag (1000units/500ml NS) 2 bags added to field was administered by Doug Ramirez RN; used for procedure; 9:34:31 Lidocaine 2% 20ml vial added to field was administered by Doug Ramirez RN; for local anesthetic; 9:37:02 --------ALL STOP TIME OUT------ 9:37:03 Final Timeout: patient, procedure, and site verified with staff and physician. All members of the team are in agreement. 9:37:06 Right groin site verified by team. 9:37:09 Physical assessment completed. ASA score P 2 - A patient with mild systemic disease as per Mario Avila MD. 9:37:12 Sedation plan: IV Moderate Sedation Versed, Fentanyl 9:37:55 Versed 1 mg I.V. was administered by Doug Ramirez RN; for sedation; 9:38:07 Fentanyl 50 mcg I.V. was administered by Doug Ramirez RN; for sedation; 9:39:39 Fentanyl 50 mcg I.V. was administered by Doug Ramirez RN; for sedation; 9:43:55 Procedure started. 9:43:59 Local anesthetic to right femoral artery with Lidocaine 2% by Mario Avila MD.INITIAL ACCESS ONLY 9:45:24 Zero performed for pressure channel P1 9:46:29 Versed 1 mg I.V. was administered by Doug Ramirez RN; for sedation; 9:46:36 Cook 18G 7cm Percutaneous Entry needle opened to sterile field. 9:47:03 A 5 Fr sheath was inserted into the Right Femoral artery 9:47:44 A Cordis 5Fr JL 4.0 Catheter (MP) was advanced over the wire and used for Procedure. 9:48:24 LCA angiography performed. 9:48:55 Catheter exchanged over wire. 9:49:00 A Cordis 5Fr 3DRC Catheter (MP) was advanced over the wire and used for Procedure. 9:49:12 Patient Weight : 291.01 lbs 9:50:39 RCA angiography performed. 9:51:03 Catheter exchanged over wire. 9:51:57 A Cordis 5Fr Pigtail Catheter (MP) was advanced over the wire and used for Procedure. 9:53:05 LV angiography performed. 9:53:06 LV gram done using RODRIGUEZ 9:53:14 EF : 50 % 9:53:18 LV hemodynamics recorded. 9:53:56 Injector settings: Ml/sec: 10, Volume: 20, 9:53:59 Catheter removed. 9:54:06 Cordis 5Fr Exoseal opened to sterile field. 9:54:19 Sheath removed intact; hemostasis achieved with Exoseal to the Right Femoral artery. 9:54:21 Procedure ended.(Physican Out) 9:54:50 Fluoroscopy time 01.80 minutes. 9:54:54 Fluoroscopy dose: 572 mGy 9:54:54 Flurop Dose total: 572 9:55:09 Contrast amount:Isovue 300 61ml. 9:55:11 Sharps counted by scrub and verified by R.N. 9:55:12 Insertion/operative site no bleeding no hematoma. 9:55:15 Post-op/insertion site Right Femoral artery dressed using a 4 x 4 and Tegaderm. 9:55:16 Post Procedure Pulses reassessed and unchanged 9:55:19 Post-procedure physical assessment completed. ASA score P 2 - A patient with mild systemic disease as per Mario Avila MD. 9:55:21 Post procedure rhythm: unchanged. 9:55:24 Estimated blood loss: 10 ml 9:55:26 Patient needs reinforcement of post procedure teaching. 9:55:26 Post procedure instruction explained to patient.Patient verbalizes understanding. 9:55:35 Procedure and supply charges have been captured, reviewed, submitted and are correct. 9:55:38 Procedure Complication : No complications 9:57:03 Vital chart was stopped 9:57:04 See physician's report for complete and final results. 9:57:06 Report given to PCU. 9:57:09 Patient transfered to PCU with Bed. 9:57:11 Full Disclosure recording stopped 9:57:11 Procedure ended. 9:57:15 End room use (Document Last) Device Usage Item Name Manufacture Quantity Catalog Hospital Part Current Minimal Lot# / Number Charge Number Stock Stock Serial# Code Tegaderm 4 x 3M 1 [id number] [id number] [id number] 5 4 Acist Hand Acist 1 82029 579081 395805 904669 5 Control [employer] Inc Acist Acist 1 98983 834912 645686 084202 5 Manifold Medical Systems Inc Acist Acist 1 80539 714220 393449 080471 20 Syringe Medical Systems Inc Bag Decanter Microtek 1 2002S 232417 67851 815998 5 Medical Inc. Medline Cath Cardinal 1 [id number] 258884 41904 057324 5 Pack Health Terumo 5Fr Terumo 1 [id number] 869309 280924 684579 [address] St Robbie 1 [id number] 009074 069575 030288 30 260cm J .035 wire Diagnostic Cardinal 1 [id number] 696954 57305 173330 30 Infinity 5Fr Health Multipack catheter Cook 18G 7cm Cook Medical 1 [id number] 583573 24147 847104 5 Percutaneous Entry needle Cordis 5Fr Cardinal 1 [id number] 5 JL 4.0 Health Catheter (MP) Cordis 5Fr Cardinal 1 779072 5 3DRC Health Catheter (MP) Cordis 5Fr Cardinal 1 367613 5 Pigtail Health Catheter (MP) Cordis 5Fr Cardinal 1 EX500 761676 094611 222505 10 [employer] Signature Audit [place] Stage Time Signature Unsigned Intra-Procedure 10/05/2017 Clemente Tripp 9:58:24 AM RT(R) Signatures Monitor : Carol Ramos RT Signature : Date : Time : Monitor : Clemente Tripp RT Signature : Date : Time : [address] [place] [address]
[~2017-10-04 14:24] MED LIST changes: +BETAPACE 120 M120 MG PO; +XARELTO20 MG PO
[2017-10-04 14:42] LABS: BASOPHILS 0.2 % (0-2); EOSINOPHILS 5.3 % (0-7); HEMATOCRIT 45.8 % (42.0-54.0); HEMOGLOBIN 15.6 g/dL (13.5-17.5); IMMATURE GRANULOCYTES 0.2 % (0-5); LYMPHOCYTES 24.7 % (15-50); MCHC 34.1 g/dL (31.0-37.0); MCV 90.9 fL (80.0-100.0); MEAN PLATELET VOLUME 10.8 fL (7.4-10.4); MONOCYTES 8.8 % (2-11); NEUTROPHILS 60.8 % (40-80); PLATELET COUNT 210 10x3/uL (130-400); RBC 5.04 10x6/uL (4.20-6.10); RDW 13.6 % (11.5-14.5); WBC 12.1 10x3/uL (4.8-10.8)
[2017-10-04 15:11] LABS: ALBUMIN 3.4 g/dL (3.4-5.0); ALKALINE PHOSPHATASE 94 U/L (46-116); ALT (SGPT) 18 U/L (10-68); BILIRUBIN - TOTAL 0.37 mg/dL (0.2-1.3); CALC OSMOLALITY 280 mosm/kg (275-300); CALCIUM 9.3 mg/dL (8.5-10.1); CARBON DIOXIDE 25.1 mmol/L (21.0-32.0); CHLORIDE - SERUM 102 mmol/L (98-107); CREATININE - SERUM 0.9 mg/dL (0.6-1.3); GLUCOSE 152 mg/dL (74-106); POTASSIUM - SERUM 4.8 mmol/L (3.5-5.1); PROTEIN - SERUM 7.4 g/dL (6.4-8.2); SODIUM 136 mmol/L (136-145); UREA NITROGEN 29 mg/dL (7-18); eGFR NON AFRICAN AMERICAN 90 mL/min (90-120)
[2017-10-04 15:36] LABS: CHOLESTEROL, TOTAL 131 mg/dL (0-200); CKMB 0.7 U/L (0.0-3.6); CREATINE KINASE 56 UL (21-232); HDL CHOLESTEROL 44 mg/dL (32-96); LDL CHOLESTEROL 64 mg/dL (0-100); LDL-HDL RATIO 1.5 ratio (1.5-3.5); TRIGLYCERIDE 118 mg/dL (30-200)
[2017-10-04 15:37] LABS: TROPONIN-I < 0.017 ng/mL (0.000-0.060)
[2017-10-04 15:41] LABS: INR 1.14 (0.85-1.17); PROTIME 14.5 SECONDS (11.6-15.0)
[2017-10-04 17:05] LABS: APPEARANCE CLEAR (CLEAR); BILIRUBIN NEGATIVE (NEGATIVE); COLOR DK YELLOW (YELLOW); GLUCOSE NEGATIVE (NEGATIVE); KETONE NEGATIVE (NEGATIVE); NITRITE NEGATIVE (NEGATIVE); PROTEIN NEGATIVE (NEGATIVE); UROBILINOGEN NORMAL (NORMAL)
--- NOTE | 2017-10-04 19:33 | NUR ---
PT ARRIVED VIA W/C FROM ER. NO DISTRESS NOTED. PT DENIES ANY DISCOMFORT. WILL CONTINUE TO MONITOR.
[2017-10-04 20:12] LABS: CKMB 0.7 U/L (0.0-3.6); CREATINE KINASE 54 UL (21-232)
[2017-10-04 20:17] LABS: TROPONIN-I < 0.017 ng/mL (0.000-0.060)
[2017-10-04 20:24] VITALS: BP 134/71; Ht 172.7 cm; Wt 129.3 kg
[2017-10-04] MEDS ORDERED: ISOSORBIDE MONO30 M1 PO (20:38)
[2017-10-04] MEDS ORDERED: NITROSTAT0.4 MG SL (20:40)
[2017-10-04 20:49] VITALS: BP 134/71
--- NOTE | 2017-10-04 22:06 | NUR ---
ADMISSION ASSESSMENT, HISTORY AND HOME MED LIST COMPLETED BY 2049 HRS. VSS. SB PER CM HR 54. PT DENIED ANY DISCOMFORT. IV TO L HAND WITH NS AT 75CC/HR. IV PATENT. RASH NOTED TO UPPER ANTERIOR CHEST. PT STATED HE HAS HAD IT FOR A FEW MONTHS. O2 2LNC. LUNGS DIMINISHED IN BASES BILAT. PT CURRENTLY RESTING WITH EYES CLOSED. RESP EVEN AND REGULAR. SR UP X2, CALL LIGHT WITHIN REACH.
--- NOTE | 2017-10-05 00:41 | NUR ---
PT RESTING WITH EYES CLOSED. RESP EVEN AND REGULAR. SR UP X2, CALL LIGHT WITHIN REACH.
[2017-10-05 01:18] VITALS: BP 148/62
--- NOTE | 2017-10-05 02:15 | NUR ---
PT AWAKE, DENIES ANY DISCOMFORT. WILL CONTINUE TO MONITOR.
[2017-10-05 02:37] LABS: CREATINE KINASE 47 UL (21-232)
[2017-10-05 02:40] LABS: TROPONIN-I < 0.017 ng/mL (0.000-0.060)
--- NOTE | 2017-10-05 04:46 | NUR ---
PT AWAKE; MARCELA ANY DISCOMFORT. WILL CONTINUE TO MONITOR.
[2017-10-05 05:25] VITALS: BP 140/53
--- NOTE | 2017-10-05 05:49 | NUR ---
PERMITS FOR AM [facility] OBTAINED. PT DECLINES SHOWER/BATH AT THIS TIME. STATES HE WILL DO IN A LITTLE BIT. WILL CONTINUE TO MONITOR.
[2017-10-05 08:38] LABS: CALC OSMOLALITY 283 mosm/kg (275-300); CALCIUM 9.1 mg/dL (8.5-10.1); CARBON DIOXIDE 25.7 mmol/L (21.0-32.0); CHLORIDE - SERUM 105 mmol/L (98-107); CKMB 0.8 U/L (0.0-3.6); CREATINE KINASE 55 UL (21-232); CREATININE - SERUM 0.9 mg/dL (0.6-1.3); GLUCOSE 123 mg/dL (74-106); POTASSIUM - SERUM 4.9 mmol/L (3.5-5.1); SODIUM 140 mmol/L (136-145); UREA NITROGEN 25 mg/dL (7-18); eGFR NON AFRICAN AMERICAN 90 mL/min (90-120)
[2017-10-05 08:39] VITALS: BP 135/71
[2017-10-05 08:39] LABS: HEMATOCRIT 42.8 % (42.0-54.0); HEMOGLOBIN 14.4 g/dL (13.5-17.5); LYMPHOCYTES 29.4 % (15-50); MCH 30.6 pg (26.0-34.0); MCHC 33.6 g/dL (31.0-37.0); MCV 90.9 fL (80.0-100.0); MEAN PLATELET VOLUME 10.3 fL (7.4-10.4); NEUTROPHILS 55.5 % (40-80); PLATELET COUNT 184 10x3/uL (130-400); RBC 4.71 10x6/uL (4.20-6.10); RDW 13.8 % (11.5-14.5); WBC 9.7 10x3/uL (4.8-10.8)
[2017-10-05 08:41] LABS: TROPONIN-I < 0.017 ng/mL (0.000-0.060)
--- NOTE | 2017-10-05 09:22 | NUR ---
PRE-OPS GIVEN. TO POST SPLITTER BY BED.
--- NOTE | 2017-10-05 10:21 | NUR ---
BACK FROM CHECKER LOADER. VS WNL. RIGHT GROIN STABLE WITHOUT BLEEDING OR HEMATOMA NOTED. WILL MONITOR.
--- NOTE | 2017-10-05 12:13 | NUR ---
BED REST UP. GROIN STABLE.
[2017-10-05 13:37] VITALS: BP 135/82
[2017-10-05 16:04] VITALS: BP 128/52
--- NOTE | 2017-10-05 19:06 | NUR ---
PAGE TO THEODORE REINOSO APN AND REPORTED THAT PT WAS NOW C/O LEFT SHOULDER AND RIGHT KNEE PAIN POST FALL TODAY. ORDERS RECIEVED FOR XRAYS TO AREAS OF PAIN OR DISCOMFORT. SPOKE WITH PATIENT AND HE SAID IT IS HIS LEFT SHOULDER AND HIS RIGHT KNEE.
--- NOTE | 2017-10-05 20:28 | NUR ---
PT NOW C/O GENERALIZED PAIN/DISCOMFORT TO KNEE/SHOULDER AND WANTING PAIN MED. PAGE/RETURN CALL FROM THEODORE REINOSO AND NEW ORDER FOR ASHA RECIEVED.
[2017-10-05 21:02] VITALS: BP 145/88
--- NOTE | 2017-10-05 21:31 | NUR ---
PT HAS BEEN GIVEN PAIN MED AND NOW XRAY IS HERE TO DO HIS LEFT SHOULDER AND RIGHT KNEE XRAYS. PT REFUSED LEFT SHOULDER XRAY, SAYING HE REALLY THINKS IT IS FINE. RIGHT KNEE XRAY COMPLETED. PT THEN ASSISTED UP AND TO THE BATHROOM TO VOID, THEN BACK TO BED. CALL LIGHT IN REACH. INSTRUCTED TO CALL FOR SUPERVISION EVERY TIME HE NEEDS TO GO TO THE BATHROOM. PT VOICED UNDERSTANDING.
--- NOTE | 2017-10-05 23:05 | NUR ---
ASSISTED BACK UP TO BATHROOM TO VOID AGAIN. CPOC.
[2017-10-06 00:30] VITALS: BP 156/63
--- NOTE | 2017-10-06 04:43 | NUR ---
ASSISTED UP TO VOID IN BATHROOM AND THEN BACK TO BED. PT HAS DIFFICULTY WITH AMBULATION AND SAYS HIS RIGHT KNEE IS HURTING HIM. CPOC.
[2017-10-06 06:03] VITALS: BP 169/61
[2017-10-06 08:07] VITALS: BP 158/63
--- NOTE | 2017-10-06 10:19 | NUR ---
TELEMETRY . ASHA GIVEN FOR C/O KNEE PAIN. CALL LIGHT IN REACH. WILL CONT. PLAN OF CARE.
--- NOTE | 2017-10-06 11:36 | NUR ---
RATE CHANGED TO UCAF HR 140S. B/P 121/71. DR. FRANCO PAGED. NEW ORDERS GIVEN. WILL MONITOR.
[2017-10-06 13:38] VITALS: BP 146/74
--- NOTE | 2017-10-06 13:41 | NUR ---
TELEMETRY UCAF HR 126. CARDIZEM GTT STARTED. WILL CONT. TO MONITOR.
[2017-10-06 16:52] VITALS: BP 141/78
--- NOTE | 2017-10-06 19:32 | NUR ---
ASSESSMENT COMPLETE, A&O, RESPERATIONS EVEN ON O2 AT 2 LITER VIA NC. IV TO LEFT HAND WITH CARDIZEM AT 5 CC/HR. SITE CLEAN AND DRY. 139 FLUTTER ON TELEMETRY PER MT. DRSG TO RIGHT GROIN C/D/I FROM CATH THAT WAS DONE ON THURSDAY. PEDAL PULSES PRESENT, PT DENIES PAIN OR NEEDS, BED LOW, CL IN REACH.
--- NOTE | 2017-10-06 20:58 | NUR ---
HS MEDS GIVEN WITH FRESH ICE WATER, NORCO 1 TAB GIVEN FOR C/O PAIN TO BACK AND KNEE, RATES PAIN AT A 7 ON PAIN SCALE. UP TO BR WITH WALKER.
[2017-10-06 21:53] VITALS: BP 137/76
[2017-10-07 02:37] VITALS: BP 133/73
--- NOTE | 2017-10-07 04:45 | NUR ---
PT LYING IN BED ON LEFT SIDE, COMMUNITY DEVELOPMENT DIRECTOR AT BEDSIDE OBTAINING V/S. PT IS RESTING COMFORTABLY, NO NEEDS AT THIS TIME. CONTINUE TO MONITOR CLOSELY. BED LOW, CALL LIGHT IN REACH, SIDE RAILS X 2, HOB 20 DEGREES.
[2017-10-07 05:16] VITALS: BP 146/95
--- NOTE | 2017-10-07 07:35 | NUR ---
IV TO LEFT HAND DC'D DUE TO INFILTRATION WITH TIP INTACT. COVERED WITH 2X2 AND TAPE. RESITED 22G IV TO LEFT WRIST WITH ONE ATTEMPT. COVERED WITH OPSITE, DATED AND INITIALED. SECURED WITH TAPE. TOLERATED WELL
--- NOTE | 2017-10-07 09:27 | NUR ---
TELEMETRY FIB/FLUTTER HR 145. DR. FRANCO NOTIFIED. CARDIZEM GTT INCREASED TO 10CC/HR.
[2017-10-07 09:29] VITALS: BP 97/53
[2017-10-07 11:40] VITALS: BP 108/74
[2017-10-07 15:31] VITALS: BP 98/57
--- NOTE | 2017-10-07 16:04 | NUR ---
TELEMETRY CAF. HR 76. WILL CONT. PLAN OF CARE.
--- NOTE | 2017-10-07 20:45 | NUR ---
HS MEDS GIVEN, NORCO 1 TAB GIVEN FOR C/O PAIN TO KNEE, RATES PAIN AT A7 ON PAIN SCALE.
[2017-10-07 21:32] VITALS: BP 109/65
--- NOTE | 2017-10-08 00:12 | NUR ---
FULL FASHIONED GARMENT KNITTER AT BEDSIDE, CALL LIGHT IN REACH. WILL CONTINUE WITH PLAN OF CARE. 53 SB ON TELEMETRY
--- NOTE | 2017-10-08 01:48 | NUR ---
RESTING WITH EYES CLOSED, RESPERATIONS EVEN, NO S/S DISTRESS NOTED.
--- NOTE | 2017-10-08 02:41 | NUR ---
PT SITTING UP ON SIDE OF BED, POPSICLE GIVEN AT PT REQUEST. DENIES PAIN OR OTHER NEEDS.
[2017-10-08 02:45] VITALS: BP 130/64
[2017-10-08 04:42] VITALS: BP 134/50
--- NOTE | 2017-10-08 07:30 | NUR ---
RECEIVED PT IN BED AAOX4 RESP UNLABORED DENIES ANY NEEDS OR DISCOMFORT AT THIS TIME
[2017-10-08 09:45] VITALS: BP 97/48
[2017-10-08 11:27] LABS: BASOPHILS 0.1 % (0-2); EOSINOPHILS 5.5 % (0-7); HEMATOCRIT 40.8 % (42.0-54.0); IMMATURE GRANULOCYTES 0.1 % (0-5); LYMPHOCYTES 28.2 % (15-50); MCH 31.5 pg (26.0-34.0); MCHC 34.3 g/dL (31.0-37.0); MCV 91.9 fL (80.0-100.0); MEAN PLATELET VOLUME 10.6 fL (7.4-10.4); MONOCYTES 9.9 % (2-11); NEUTROPHILS 56.2 % (40-80); PLATELET COUNT 162 10x3/uL (130-400); RBC 4.44 10x6/uL (4.20-6.10); RDW 13.7 % (11.5-14.5); WBC 8.7 10x3/uL (4.8-10.8)
[2017-10-08 11:42] LABS: CALC OSMOLALITY 285 mosm/kg (275-300); CALCIUM 8.9 mg/dL (8.5-10.1); CHLORIDE - SERUM 105 mmol/L (98-107); CREATININE - SERUM 0.9 mg/dL (0.6-1.3); GLUCOSE 134 mg/dL (74-106); POTASSIUM - SERUM 4.5 mmol/L (3.5-5.1); SODIUM 139 mmol/L (136-145); UREA NITROGEN 28 mg/dL (7-18); eGFR NON AFRICAN AMERICAN 90 mL/min (90-120)
[2017-10-08] MEDS ORDERED: XARELTO20 MG PO (11:56)
[2017-10-08] MEDS ORDERED: BETAPACE 80 MG80 MG PO (11:57)
--- NOTE | 2017-10-08 12:07 | NUR ---
fsbs 131 no coverage
[2017-10-08 12:30] VITALS: BP 117/61
--- NOTE | 2017-10-08 14:15 | NUR ---
reviewed discharge instructions with pt and both state understanding copy given dcd saline lock to lt wrist with 22 ga saline lock intact site free of reddness or edema pt discharged home left unit in stable condition via w/c with all personal belongings
--- NOTE | 2017-10-08 14:24 | NUR ---
Patient Name: VERNON PETTY Admission Status: ER Accout number: [id number] Admission Date: 10-06-2017 : 1955 Admission Diagnosis:UNSPECIFIED ATRIAL FIBRILLATION Attending: BRAYDEN CRABTREE Current LOS: 2 Anticipated DC Date: 10-08-2017 Planned Disposition: Home Primary Insurance: [facility] Discharge Planning Comments: * Is the patient Alert and Oriented? Yes 0 * How many steps to enter\exit or inside your home? 3 0 * PCP DR. PIERCE 0 * Pharmacy [facility] 0 * Preadmission Environment Home with Family 0 * ADLs Independent 0 * Equipment Cane CPAP Walker 0 * Other Equipment NO EQUIPMENT PROVIDER PREFERNCE 0 * List name and contact numbers for known caregivers / representatives who currently or will assist patient after discharge: DAXA STEIN, SPOUSE, [place] PETTY, SON, 0 * Community resources currently utilized None 0 * Please name any agencies selected above. NONE 0 * Additional services required to return to the preadmission environment? No 0 * Can the patient safely return to the preadmission environment? Yes 0 * Has this patient been hospitalized within the prior 30 days at any hospital? Yes 0 CM MET WITH PT IN ROOM TO DISCUSS DISCHARGE PLANNING AND NEEDS. PT REPORTS LIVING AT HOME INDEPENDENTLY WITH SPOUSE. PT HAS CPAP, CANE AND SEVERAL WALKERS AT HOME WITH NO MEDICAL EQUIPMENT PROVIDER PREFERENCE. PT HAS NO OUTSIDE SERVICES ASSISTING IN THE HOME. CM DISCUSSED AVAILABILITY OF HOME HEALTH, REHAB SERVICES AND MEDICAL EQUIPMENT. PT DENIES DISCHARGE NEEDS, REPORTS HIS SON WILL PICK HIM UP FOR DISCHARGE HOME TODAY. [place] Rafting Guide: Daquan Willis
== END 2017-10-08 14:15 | disposition home or self-care (01) | DRG 287 ==
LOC: D.ER 14:24 → OBSVTIME 18:34 → D.M2 18:34
PROVIDERS: Emergency Medicine; Family Medicine; Internal Medicine Cardiovascular Disease; Nurse Practitioner Family; ADMIT Emergency Medicine
PROC: B2151ZZ Fluoroscopy of Left Heart using Low Osmolar Contrast (ICD-10-PCS; 2017-10-05)
PROC: 4A023N7 Measurement of Cardiac Sampling and Pressure, Left Heart, Percutaneous Approach (ICD-10-PCS; 2017-10-05)
PROC: B2111ZZ Fluoroscopy of Multiple Coronary Arteries using Low Osmolar Contrast (ICD-10-PCS; principal; 2017-10-05 11:15)
DX: I48.0 Paroxysmal atrial fibrillation (principal); Z68.41 Body mass index [BMI] 40.0-44.9, adult; I25.10 Atherosclerotic heart disease of native coronary artery without angina pectoris; E11.65 Type 2 diabetes mellitus with hyperglycemia; I10 Essential (primary) hypertension; D63.8 Anemia in other chronic diseases classified elsewhere; E66.01 Morbid (severe) obesity due to excess calories; I95.9 Hypotension, unspecified; T78.3XXA Angioneurotic edema, initial encounter; Z95.5 Presence of coronary angioplasty implant and graft

== ENCOUNTER → 2018-06-03 14:12 | Outpatient (CLI) | payer MEDICARE ==
[2017-10-04 20:24] VITALS: BMI 44.2
[~2018-06-03 14:12] MED LIST changes: +ISOSORBIDE MONO30 M1 PO; +NITROSTAT0.4 MG SL
== END | disposition home or self-care (01) ==
LOC: D.CT 14:12
DX: Z91.81 History of falling (principal)

== ENCOUNTER → 2018-06-29 15:45 | Outpatient (CLI) | payer MEDICARE ==
[2017-10-04 20:24] VITALS: BMI 44.2
== END | disposition home or self-care (01) ==
LOC: D.MRI 15:45
DX: M54.2 Cervicalgia (principal)

== ENCOUNTER 2019-01-11 16:04 | Observation (INO) | payer MEDICARE ==
[~2019-01-11] VITALS: Ht 172.7 cm; Wt 147.4 kg
--- NOTE | 2019-01-11 19:08 | NUR ---
PT RESTING NO S/S OF DISTRESS NOTED. PT BP 145/70, HR 39 TO 45 WHICH IS PT'S NORMAL ACCORDING TO EMS AND PT AND PT . STATES PT HAS BEEN TO SEE SOLID FIBER PASTER OPERATOR AND WAS TOLD IT IS OK FOR HIS HEART RATE TO RUN LOW AND IT WAS HIS NORMAL.
--- NOTE | 2019-01-11 21:30 | NUR ---
PT ARRIVED TO FLOOR VIA STRETCHER. TRANSFERED TO BED. PT STATES PAIN IN LOWER BACK 3/10 BEFORE PAIN MED WAS GIVEN, AT THE MOMENT PT IS HAVING NO PAIN. PT STATES HE HAS BEEN UNABLE TO AMBULATE SINCE FALLING ABOUT 24 HOURS AGO. IV RIGHT HAND INFUSING NS @ 125. PT STATES NO NEEDS AT THIS TIME. ENCOURAGED PT TO USE CL WITH NEEDS. CL IN REACH, WILL CONTINUE TO MONITOR
[2019-01-12 00:11] VITALS: BP 150/76
[2019-01-12 01:24] VITALS: BMI 49.5
[2019-01-12 04:33] VITALS: BP 139/88
[2019-01-12 06:36] LABS: HEMATOCRIT 39.6 % (42.0-54.0); HEMOGLOBIN 13.6 g/dL (13.5-17.5); LYMPHOCYTES 15.2 % (15-50); MCH 33.2 pg (26.0-34.0); MCHC 34.3 g/dL (31.0-37.0); MCV 96.6 fL (80.0-100.0); MEAN PLATELET VOLUME 10.8 fL (7.4-10.4); NEUTROPHILS 76.7 % (40-80); PLATELET COUNT 130 10x3/uL (130-400); RDW 13.8 % (11.5-14.5); WBC 8.4 10x3/uL (4.8-10.8)
[2019-01-12 06:45] LABS: ALBUMIN 2.9 g/dL (3.4-5.0); ALKALINE PHOSPHATASE 78 U/L (46-116); ALT (SGPT) 29 U/L (10-68); BILIRUBIN - TOTAL 0.44 mg/dL (0.2-1.3); CALC OSMOLALITY 284 mosm/kg (275-300); CALCIUM 8.2 mg/dL (8.5-10.1); CARBON DIOXIDE 23.3 mmol/L (21.0-32.0); CHLORIDE - SERUM 106 mmol/L (98-107); CREATININE - SERUM 0.9 mg/dL (0.6-1.3); GLUCOSE 98 mg/dL (74-106); POTASSIUM - SERUM 4.4 mmol/L (3.5-5.1); PROTEIN - SERUM 5.9 g/dL (6.4-8.2); SODIUM 142 mmol/L (136-145); UREA NITROGEN 19 mg/dL (7-18); eGFR NON AFRICAN AMERICAN 90 mL/min (90-120)
[2019-01-12 09:00] VITALS: BP 164/77
[2019-01-12 13:08] VITALS: Ht 172.7 cm; Wt 147.4 kg
[2019-01-12 13:56] VITALS: BP 134/68
--- NOTE | 2019-01-12 17:08 | MORECARE ---
CASE MANAGEMENT DISCHARGE SUMMARY PATIENT: VERNON PETTY UNIT: [id number] ADM DATE: 01/11/19 AGE: 63 : 51 SEX: M ROOM/BED: D.2236 AUTHOR: SUJEY LUJAN PHYSICIAN: REFERRING PHYSICIAN: DESTINY PAVON MD DATE OF SERVICE: 01/12/19 Discharge Plan Patient Name: VERNON PETTY Facility: [facility]:[place] : 1955 Planned Disposition: Anticipated Discharge Date: Discharge Date: Expected LOS: Initial Reviewer: [email or web address] Initial Review Date: 01/12/2019 Generated: 01/12/19 6:08 pm Comments DCP- Discharge Planning Updated by [id number]: Jess Nina on 01/12/19 4:[address] Met with patient to discuss discharge planning, he asks me to return tomorrow for discharge planning. MOOM explained, signed, Will meet with him tomorrow. CM will continue to follow and assist with discharge planning/needs. Coverage Notice Reviewer: [id number] - Jess Nina Notice Issued Date-Time: 01/12/2019 17:04 Notice Type: Medicare Outpatient Observation Notice Notice Delivered To: Patient Relationship to Patient: Self Supervisor Sewing Department Name: Delivery Method: HAND - Hand Delivered Nadiya Days: Prior Verbal Notification: Recipient Understood Notice: Yes Recipient Signature: Yes Med Rec Note Co-signed by Attending: Coverage Notice Comment: IMM explained, signed, given, copy placed in MR Patient Name: VERNON PETTY Page [id number] at 1708 All edits/amendments must be made on the electronic document DICTATION DATE: 01/12/191706 INFECTION CONTROL COORDINATOR: THOMAS 01/12/191706 RPT#: [id number] DC DATE: STATUS: ADM IN [facility] [address] [place] [address] END OF REPORT
[2019-01-12 17:12] VITALS: BP 128/69
--- NOTE | 2019-01-12 18:08 | NUR ---
PATIENT ASKING STAFF TO HOLD PENIS SO HE CAN URINATE BUT HE CAN HOLD PHONE, DRINKING CUP AND OTHER ITEMS, COMPLETE BED CHANGE DONE PT URINATED IN BED, THE HE SAID HE HAD TO GO AND HELD URINAL AND HE VOIDED 100 MLS.
--- NOTE | 2019-01-12 18:29 | NUR ---
PATIENT REFUSES TO HOLD URINAL STATES HAS NO FEELING IN HANDS HE HOLDS PHONE AND DRINKING GLASS. PT. URINATED BED AGAIN AND COMPLETE LINEN CHANGE DONE.
[2019-01-13 05:50] LABS: BASOPHILS 0.2 % (0-2); EOSINOPHILS 0 % (0-7); HEMOGLOBIN 15.3 g/dL (13.5-17.5); IMMATURE GRANULOCYTES 0.1 % (0-5); LYMPHOCYTES 15.2 % (15-50); MCH 32.4 pg (26.0-34.0); MCV 95.3 fL (80.0-100.0); MEAN PLATELET VOLUME 11.2 fL (7.4-10.4); MONOCYTES 9.8 % (2-11); NEUTROPHILS 74.7 % (40-80); RBC 4.72 10x6/uL (4.20-6.10); RDW 13.5 % (11.5-14.5)
[2019-01-13 06:11] LABS: ANION GAP 16.8 mmol/L (8-16); CALCIUM 8.5 mg/dL (8.5-10.1); CREATININE - SERUM 1.1 mg/dL (0.6-1.3); POTASSIUM - SERUM 3.8 mmol/L (3.5-5.1)
[2019-01-13 06:39] LABS: PLATELET COUNT 160 10x3/uL (130-400)
[2019-01-13 08:46] VITALS: BP 152/102
[2019-01-13 12:46] VITALS: BP 109/52
--- NOTE | 2019-01-13 13:36 | MORECARE ---
CASE MANAGEMENT DISCHARGE SUMMARY PATIENT: VERNON PETTY UNIT: [id number] ADM DATE: 01/11/19 AGE: 63 : 53 SEX: M ROOM/BED: D.2236 AUTHOR: SUJEY LUJAN PHYSICIAN: REFERRING PHYSICIAN: DESTINY PAVON MD DATE OF SERVICE: 01/13/19 Discharge Plan Patient Name: VERNON PETTY Facility: [facility]:[place] : 1955 Planned Disposition: Home Anticipated Discharge Date: Discharge Date: Expected LOS: Initial Reviewer: [id number] Initial Review Date: 01/12/2019 Generated: 01/13/19 2:36 pm Comments DCP- Discharge Planning Updated by [email or web address]: Jess Nina on 01/12/19 4:[address] Met with patient to discuss discharge planning, he asks me to return tomorrow for discharge planning. MOOM explained, signed, Will meet with him tomorrow. CM will continue to follow and assist with discharge planning/needs. Coverage Notice Reviewer: [id number] - Jess Nina Notice Issued Date-Time: 01/12/2019 17:04 Notice Type: Medicare Outpatient Observation Notice Notice Delivered To: Patient Relationship to Patient: Self Section Weaver Name: Delivery Method: HAND - Hand Delivered Nadiya Days: Prior Verbal Notification: Recipient Understood Notice: Yes Recipient Signature: Yes Med Rec Note Co-signed by Attending: Coverage Notice Comment: IMM explained, signed, given, copy placed in MR Last DP export: 01/12/19 4:08 p Patient Name: VERNON PETTY Page [id number] at 1336 All edits/amendments must be made on the electronic document DICTATION DATE: 01/13/19 1335 PLATEN DRIER OPERATOR: THOMAS 01/13/19 1335 RPT#: [id number] DC DATE: STATUS: ADM IN [facility] [address] [place] [address] END OF REPORT
[2019-01-13] MEDS ORDERED: ROBAXIN500 MG PO (13:42)
[2019-01-13] MEDS ORDERED: HYDROCODON-ACE1 EA10 PO (13:43)
[2019-01-13] MEDS ORDERED: GABAPENTIN100 MG PO (13:43)
[2019-01-13] MEDS ORDERED: MIRALAX17 GM PO (13:44)
--- NOTE | 2019-01-13 13:49 | MORECARE ---
CASE MANAGEMENT DISCHARGE SUMMARY PATIENT: VERNON PETTY UNIT: [id number] ADM DATE: 01/11/19 AGE: 63 : 53 SEX: M ROOM/BED: D.2236 AUTHOR: TAI,DOC PHYSICIAN: REFERRING PHYSICIAN: DESTINY PAVON MD DATE OF SERVICE: 01/13/19 Discharge Plan Patient Name: VERNON PETTY Facility: [facility]:[place] : 1955 Planned Disposition: Home Anticipated Discharge Date: Discharge Date: Expected LOS: Initial Reviewer: [id number] Initial Review Date: 01/12/2019 Generated: 01/13/19 2:49 pm Comments DCP- Discharge Planning Updated by [email or web address]: Jess Nina on 01/12/19 4:[address] Met with patient to discuss discharge planning, he asks me to return tomorrow for discharge planning. MOOM explained, signed, Will meet with him tomorrow. CM will continue to follow and assist with discharge planning/needs. DCPIA - Discharge Planning Initial Assessment Updated by [email or web address]: Jess Nina on 01/13/19 1:45 pm * Is the patient Alert and Oriented? Yes * How many steps to enter\exit or inside your home? 3/0 * PCP Dr. Gamboa * Pharmacy [facility] * Preadmission Environment Home with Family * ADLs Partial Dependent * Partial ADLs (Assistance needed) Ambulation * Equipment Cane CPAP Walker * List name and contact numbers for known caregivers / representatives who currently or will assist patient after discharge: Ysabel - - [phone] Ezequiel - son - [phone] * Verbal permission to speak to the caregivers and representatives has been obtained from the patient. Yes * Community resources currently utilized None * Please name any agencies selected above. [facility] - [facility] * Additional services required to return to the preadmission environment? No * Can the patient safely return to the preadmission environment? Yes * Has this patient been hospitalized within the prior 30 days at any hospital? No Coverage Notice Reviewer: [email or web address] - Jess Nina Notice Issued Date-Time: 01/12/2019 17:04 Notice Type: Medicare Outpatient Observation Notice Notice Delivered To: Patient Relationship to Patient: Self Compensation And Benefits Manager Name: Delivery Method: HAND - Hand Delivered Nadiya Days: Prior Verbal Notification: Recipient Understood Notice: Yes Recipient Signature: Yes Med Rec Note Co-signed by Attending: Coverage Notice Comment: IMM explained, signed, given, copy placed in MR Last DP export: 01/13/19 12:36 p Patient Name: VERNON PETTY Page [id number] at 1349 All edits/amendments must be made on the electronic document DICTATION DATE: 01/13/19 134 FUEL TRUCK DRIVER: THOMAS 01/13/19 1349 RPT#: [id number] DC DATE: STATUS: ADM IN [facility] [address] [place] [address] END OF REPORT
--- NOTE | 2019-01-13 13:58 | MORECARE ---
CASE MANAGEMENT DISCHARGE SUMMARY PATIENT: VERNON PETTY UNIT: [id number] ADM DATE: 01/11/19 AGE: 63 : 51 SEX: M ROOM/BED: D.2236 AUTHOR: TAIDOC PHYSICIAN: REFERRING PHYSICIAN: DESTINY PAVON MD DATE OF SERVICE: 01/13/19 Discharge Plan Patient Name: VERNON PETTY Facility: [facility]:[place] : 1955 Planned Disposition: Home Anticipated Discharge Date: Discharge Date: Expected LOS: Initial Reviewer: [email or web address] Initial Review Date: 01/12/2019 Generated: 01/13/19 2:57 pm Comments DCP- Discharge Planning Updated by [id number]: Jess Nina on 01/13/19 12:[address] Patient Name: VERNON PETTY Admission Status: ER Accout number: [id number] Admission Date: 01-11-2019 : 1955 Admission Diagnosis: Attending: DESTINY PAVON Current LOS: 2 Anticipated DC Date: Planned Disposition: Home Primary Insurance: [facility] [employer] SOLUTIONS Discharge Planning Comments: CM met with patient to discuss discharge planning/needs, he is alone in the room. He states he lives with his . States he is independent with a all ADL's. and AIDL'S. States he has 5 canes and 3 walkers and CPAP at home. States he gets his CPAP supplies from [employer]. States he does not have any outside community resources in the home. I questioned him about a glucometer, he states he does not have one and does not want one. States they are taking my sugar here and it is always good. Informed him that PT suggests home health. He states he does not want home health. States he will have Dr. Gamboa order it if he changes his mind. States "I can walk with my walker, this IV just gets in the way." CM will continue to follow and assist with DC planning/needs Terminal System Operator: Jess Nina DCP- Discharge Planning Updated by [id number]: Jess Nina on 01/12/19 4:[address] Met with patient to discuss discharge planning, he asks me to return tomorrow for discharge planning. MOOM explained, signed, Will meet with him tomorrow. CM will continue to follow and assist with discharge planning/needs. DCPIA - Discharge Planning Initial Assessment Updated by [email or web address]: Jess Nina on 01/13/19 1:45 pm * Is the patient Alert and Oriented? Yes * How many steps to enter\\exit or inside your home? 3/0 * PCP Dr. Gamboa * Pharmacy [facility] * Preadmission Environment Home with Family * ADLs Partial Dependent * Partial ADLs (Assistance needed) Ambulation * Equipment Cane CPAP Walker * List name and contact numbers for known caregivers / representatives who currently or will assist patient after discharge: Ysabel - - [phone] Ezequiel - son - [phone] * Verbal permission to speak to the caregivers and representatives has been obtained from the patient. Yes * Community resources currently utilized None * Please name any agencies selected above. DME company - [facility] [facility] * Additional services required to return to the preadmission environment? No * Can the patient safely return to the preadmission environment? Yes * Has this patient been hospitalized within the prior 30 days at any hospital? No Coverage Notice Reviewer: [id number] - Jess Nina Notice Issued Date-Time: 01/12/2019 17:04 Notice Type: Medicare Outpatient Observation Notice Notice Delivered To: Patient Relationship to Patient: Self Hydro Generation Manager Name: Delivery Method: HAND - Hand Delivered Nadiya Days: Prior Verbal Notification: Recipient Understood Notice: Yes Recipient Signature: Yes Med Rec Note Co-signed by Attending: Coverage Notice Comment: IMM explained, signed, given, copy placed in MR Last DP export: 01/13/19 12:49 p Patient Name: VERNON PETTY Page 90283 at 1358 All edits/amendments must be made on the electronic document DICTATION DATE: 01/13/19 1357 HOP SEPARATOR: THOMAS 01/13/19 1357 RPT#: [id number] DC DATE: STATUS: ADM IN [facility] [address] [place] [address] END OF REPORT
--- NOTE | 2019-01-13 15:30 | MORECARE ---
CASE MANAGEMENT DISCHARGE SUMMARY PATIENT: VERNON PETTY UNIT: [id number] ADM DATE: 01/11/19 AGE: 63 : 53 SEX: M ROOM/BED: D.2236 AUTHOR: TAI,DOC PHYSICIAN: REFERRING PHYSICIAN: DESTINY PAVON MD DATE OF SERVICE: 01/13/19 Discharge Plan Patient Name: VERNON PETTY Facility: [facility]:[place] : 1955 Planned Disposition: Home Anticipated Discharge Date: Discharge Date: Expected LOS: Initial Reviewer: [id number] Initial Review Date: 01/12/2019 Generated: 01/13/19 4:30 pm Comments DCP- Discharge Planning Updated by [id number]: Jess Maico on 01/13/19 2:[address] Discharging home today. Declines [facility]. States he will see his own neurologist in [place]. States he ambulated with walker to the bathroom without difficulty. States he had an MRI in April, I instructed him that something could've changed since then and the physician has ordered an outpatient MRI for him. He denies need for DME. CM will continue to follow and assist with discharge planning/needs. DCP- Discharge Planning Updated by [email or web address]: Jess Beareligio on 01/13/19 12:[address] Patient Name: VERNON PETTY Admission Status: ER Accout number: [id number] Admission Date: 01-11-2019 : 1955 Admission Diagnosis: Attending: DESTINY PAVON Current LOS: 2 Anticipated DC Date: Planned Disposition: Home Primary Insurance: [facility] MEDIC[facility] SOLUTIONS Discharge Planning Comments: CM met with patient to discuss discharge planning/needs, he is alone in the room. He states he lives with his . States he is independent with a all ADL's. and AIDL'S. States he has 5 canes and 3 walkers and CPAP at home. States he gets his CPAP supplies from [employer]. States he does not have any outside community resources in the home. I questioned him about a glucometer, he states he does not have one and does not want one. States they are taking my sugar here and it is always good. Informed him that PT suggests home health. He states he does not want home health. States he will have Dr. Gamboa order it if he changes his mind. States "I can walk with my walker, this IV just gets in the way." CM will continue to follow and assist with DC planning/needs Employment Attorney: Jess Nina DCP- Discharge Planning Updated by [id number]: Jess Maico on 01/12/19 4:[address] Met with patient to discuss discharge planning, he asks me to return tomorrow for discharge planning. MOOM explained, signed, Will meet with him tomorrow. CM will continue to follow and assist with discharge planning/needs. DCPIA - Discharge Planning Initial Assessment Updated by [id number]: Jess Maico on 01/13/19 1:45 pm * Is the patient Alert and Oriented? Yes * How many steps to enter\\exit or inside your home? 3/0 * PCP Dr. Gamboa * Pharmacy [facility] * Preadmission Environment Home with Family * ADLs Partial Dependent * Partial ADLs (Assistance needed) Ambulation * Equipment Cane CPAP Walker * List name and contact numbers for known caregivers / representatives who currently or will assist patient after discharge: Ysabel - - [phone] Ezequiel - son - [phone] * Verbal permission to speak to the caregivers and representatives has been obtained from the patient. Yes * Community resources currently utilized None * Please name any agencies selected above. [facility] - [facility] * Additional services required to return to the preadmission environment? No * Can the patient safely return to the preadmission environment? Yes * Has this patient been hospitalized within the prior 30 days at any hospital? No Coverage Notice Reviewer: [id number] - Jess Maico Notice Issued Date-Time: 01/12/2019 17:04 Notice Type: Medicare Outpatient Observation Notice Notice Delivered To: Patient Relationship to Patient: Self Merchandise Planner Name: Delivery Method: HAND - Hand Delivered Nadiya Days: Prior Verbal Notification: Recipient Understood Notice: Yes Recipient Signature: Yes Med Rec Note Co-signed by Attending: Coverage Notice Comment: IMM explained, signed, given, copy placed in MR Last DP export: 01/13/19 12:58 p Patient Name: VERNON PETTY Page 08783 at 1530 All edits/amendments must be made on the electronic document DICTATION DATE: 01/13/191529 NIGHT CUSTODIAN: THOMAS 01/13/191529 RPT#: [id number] DC DATE: STATUS: ADM IN [facility] [address] [place] [address] END OF REPORT
--- NOTE | 2019-01-14 16:57 | MORECARE ---
CASE MANAGEMENT DISCHARGE SUMMARY PATIENT: VERNON PETTY UNIT: [id number] ADM DATE: 01/11/19 AGE: 63 : 51 SEX: M ROOM/BED: D.2236 AUTHOR: TAI,DOC PHYSICIAN: REFERRING PHYSICIAN: DESTINY PAVON MD DATE OF SERVICE: 01/14/19 Discharge Plan Patient Name: VERNON PETTY Facility: [facility]:[place] : 1955 Planned Disposition: Home Anticipated Discharge Date: Discharge Date: 01/13/2019 Expected LOS: 0 Initial Reviewer: [email or web address] Initial Review Date: 01/12/2019 Generated: 01/14/19 5:57 pm Comments DCP- Discharge Planning Updated by [email or web address]: Jessursula Nina on 01/13/19 2:[address] Discharging home today. Declines [facility]. States he will see his own neurologist in [place]. States he ambulated with walker to the bathroom without difficulty. States he had an MRI in April, I instructed him that something could've changed since then and the physician has ordered an outpatient MRI for him. He denies need for DME. CM will continue to follow and assist with discharge planning/needs. DCP- Discharge Planning Updated by [id number]: Jess Nina on 01/13/19 12:[address] Patient Name: VERNON PETTY Admission Status: ER Accout number: [id number] Admission Date: 01-11-2019 : 1955 Admission Diagnosis: Attending: DESTINY PAVON Current LOS: 2 Anticipated DC Date: Planned Disposition: Home Primary Insurance: [facility] MEDICARE SOLUTIONS Discharge Planning Comments: CM met with patient to discuss discharge planning/needs, he is alone in the room. He states he lives with his . States he is independent with a all ADL's. and AIDL'S. States he has 5 canes and 3 walkers and CPAP at home. States he gets his CPAP supplies from [employer]. States he does not have any outside community resources in the home. I questioned him about a glucometer, he states he does not have one and does not want one. States they are taking my sugar here and it is always good. Informed him that PT suggests home health. He states he does not want home health. States he will have Dr. Gamboa order it if he changes his mind. States "I can walk with my walker, this IV just gets in the way." CM will continue to follow and assist with DC planning/needs Lawn Service Manager: Jess Nina DCP- Discharge Planning Updated by [id number]: Jess Maico on 01/12/19 4:[address] Met with patient to discuss discharge planning, he asks me to return tomorrow for discharge planning. MOOM explained, signed, Will meet with him tomorrow. CM will continue to follow and assist with discharge planning/needs. DCPIA - Discharge Planning Initial Assessment Updated by [id number]: Jess Nina on 01/13/19 1:45 pm * Is the patient Alert and Oriented? Yes * How many steps to enter\\exit or inside your home? 3/0 * PCP Dr. Gamboa * Pharmacy [facility] * Preadmission Environment Home with Family * ADLs Partial Dependent * Partial ADLs (Assistance needed) Ambulation * Equipment Cane CPAP Walker * List name and contact numbers for known caregivers / representatives who currently or will assist patient after discharge: Ysabel - - [phone] Ezequiel - son - [phone] * Verbal permission to speak to the caregivers and representatives has been obtained from the patient. Yes * Community resources currently utilized None * Please name any agencies selected above. [facility] - [facility] * Additional services required to return to the preadmission environment? No * Can the patient safely return to the preadmission environment? Yes * Has this patient been hospitalized within the prior 30 days at any hospital? No Coverage Notice Reviewer: [id number] - Jess Nina Notice Issued Date-Time: 01/12/2019 17:04 Notice Type: Medicare Outpatient Observation Notice Notice Delivered To: Patient Relationship to Patient: Self Top Stop Attacher Name: Delivery Method: HAND - Hand Delivered Nadiya Days: Prior Verbal Notification: Recipient Understood Notice: Yes Recipient Signature: Yes Med Rec Note Co-signed by Attending: Coverage Notice Comment: IMM explained, signed, given, copy placed in MR Last DP export: 01/13/19 2:30 p Patient Name: VERNON PETTY Page 38469 at 1657 All edits/amendments must be made on the electronic document DICTATION DATE: 01/14/191655 CAREER ORIENTATION TEACHER: THOMAS 01/14/191655 RPT#: [id number] DC DATE:01/13/19 STATUS: DIS IN [facility] [address] [place] [address] END OF REPORT
== END 2019-01-13 18:25 | disposition home or self-care (01) ==
LOC: D.ER 16:04 → OBSVTIME 20:26 → D.MS 20:26
PROVIDERS: Family Medicine; ADMIT Internal Medicine Nephrology
DX: M50.30 Other cervical disc degeneration, unspecified cervical region (principal); M51.36 Other intervertebral disc degeneration, lumbar region; M48.02 Spinal stenosis, cervical region; I25.10 Atherosclerotic heart disease of native coronary artery without angina pectoris; I48.91 Unspecified atrial fibrillation; R00.1 Bradycardia, unspecified

== ENCOUNTER → 2019-01-18 12:44 | Outpatient (CLI) | payer MEDICARE ==
[2019-01-12 13:08] VITALS: BMI 49.4
[~2019-01-18 12:44] MED LIST changes: +GABAPENTIN100 MG PO; +HYDROCODON-ACE1 EA10 PO; +MIRALAX17 GM PO; +ROBAXIN500 MG PO
== END | disposition home or self-care (01) ==
LOC: D.MRI 11:30
DX: M54.5 Low back pain (principal)